=== PATIENT | female | born 1955 | race Caucasian/White ===

== ENCOUNTER 2020-12-22 05:56 | Day surgery (SDC) | payer MEDICARE, BC ==
[2020-12-22] MEDS ORDERED: Lactated Ringers 1,000 ML IV SCH (06:30)
[2020-12-22] MEDS ORDERED: Nozin Nasal Sanitizer NASBOTH ONE (06:30)
[2020-12-22] MEDS ORDERED: Povidone-Iodine 10% Soln 118.25 ML Bottle ONE (06:50)
[2020-12-22] MEDS ORDERED: Bupivacaine 0.5% 30 ML SDV ONE (06:50)
[2020-12-22] MEDS ORDERED: Lactated Ringers 500 ML IV SCH (07:00)
[2020-12-22] MEDS ORDERED: fentaNYL 100 MCG/2 ML SDV ONE (07:02)
[2020-12-22] MEDS ORDERED: Midazolam 1 MG/ML 2 ML SDV ONE (07:02)
[2020-12-22] MEDS ORDERED: Propofol 200 MG/20 ML SDV ONE (07:02)
[2020-12-22] MEDS ORDERED: ceFAZolin 1 GM in Premix Bag 1 BAG IV ONE (07:30)
[2020-12-22] MEDS ORDERED: Lactated Ringers 1,000 ML ONE (08:15)
[2020-12-22] MEDS ORDERED: Ondansetron 4 MG/2 ML SDV IVPUSH PRN (08:54)
[2020-12-22] MEDS ORDERED: Morphine 2 MG/ML SYRINGE IV PRN (08:54)
[2020-12-22] MEDS ORDERED: Acetaminophen/HYDROcodone 325-5 MG Tab PO PRN (08:54)
[2020-12-22] MEDS ORDERED: Acetaminophen 325 MG Tab PO PRN (08:54)
[2020-12-22] MEDS ORDERED: Sodium Chloride 0.9% 1,000 ML IV SCH (09:00)
[2020-12-22] MEDS ORDERED: PHENYTOIN 50 MG PO SCH (09:00)
[2020-12-22] MEDS: Acetaminophen/oxyCODONE 325-5 MG Tab PO PRN ×2 (12:22→20:38)
[2020-12-22] MEDS: Gabapentin 300 MG Cap PO SCH ×2 (12:24→20:32)
[2020-12-22] MEDS: Nozin Nasal Sanitizer NASBOTH SCH ×2 (12:24→20:25)
[2020-12-22] MEDS: atorvaSTATin 20 MG Tab PO SCH (12:24)
[2020-12-22] MEDS: Docusate Sodium 100 MG Cap PO SCH ×2 (12:24→20:31)
[2020-12-22] MEDS: Phenytoin 100 MG Cap.ER PO SCH ×2 (12:25→20:33)
[2020-12-22] MEDS: Topiramate 100 MG Tab PO SCH (12:25)
[2020-12-22] MEDS: Insulin Lispro 100 Unit/ML 3 ML KwikPen SUBCUT SCH ×2 (12:25→17:13)
[2020-12-22] MEDS: Insulin Glargine,Human Rec. Analog 100 Units/ML 3 ML Pen SUBCUT SCH ×2 (12:26→20:31)
[2020-12-22] MEDS: ceFAZolin 1 GM in Premix Bag 1 BAG IV SCH ×2 (15:05→21:51)
[2020-12-22] MEDS ORDERED: Warfarin 5 MG Tab PO ONE (16:00)
--- NOTE | 2020-12-22 16:12 | PCM.SN.2 ---
- Free Text/Narrative Note: Called [facility] for clarification on Coumadin Bridging Therapy, as there is no dose listed on the orders for the Lovenox. Per Gianna MALLORY at [facility], patient to resume 100 mg Lovenox subcutaneous daily starting on 12/23/20 through 12/26/20. Will have INR check on 12/26/20. Coumadin dosing as listed on the original bridging order form; patient has a copy of the form with bridging doses. A script for the Lovenox was called to Dionna Ansari in [facility] by [facility].
[2020-12-22] MEDS ORDERED: PHYTONADIONE 100 MCG PO SCH (17:00)
[2020-12-22] MEDS ORDERED: Ferrous Sulfate 325 MG Tab PO SCH (17:00)
[2020-12-22] MEDS ORDERED: Topiramate 100 MG Tab PO SCH (17:00)
[2020-12-22] MEDS ORDERED: Potassium Chloride 10 MEQ Cap.ER PO SCH (17:00)
[2020-12-22] MEDS: Pantoprazole 40 MG Tab.CR PO SCH (17:10)
[2020-12-22] MEDS ORDERED: Non-Formulary Medication 1 Each (Omeprazole [Omeprazole] 40 MG Cap.Cr) PO SCH (21:00)
[2020-12-23] MEDS: ceFAZolin 1 GM in Premix Bag 1 BAG IV SCH (05:15)
[2020-12-23] MEDS: Acetaminophen/oxyCODONE 325-5 MG Tab PO PRN ×2 (05:21→11:51)
[2020-12-23] MEDS: Pantoprazole 40 MG Tab.CR PO SCH (07:49)
[2020-12-23] MEDS: Insulin Lispro 100 Unit/ML 3 ML KwikPen SUBCUT SCH ×2 (07:50→12:27)
[2020-12-23] MEDS ORDERED: Losartan 50 MG Tab PO SCH (09:00)
[2020-12-23] MEDS ORDERED: Enoxaparin 100 MG/1 ML Syringe SUBCUT SCH (09:00)
[2020-12-23] MEDS ORDERED: Hydrochlorothiazide 25 MG Tab PO SCH (09:00)
[2020-12-23] MEDS: Nozin Nasal Sanitizer NASBOTH SCH (09:17)
[2020-12-23] MEDS: Docusate Sodium 100 MG Cap PO SCH (09:17)
[2020-12-23] MEDS: atorvaSTATin 20 MG Tab PO SCH (09:19)
[2020-12-23] MEDS: Phenytoin 100 MG Cap.ER PO SCH (09:20)
[2020-12-23] MEDS: Gabapentin 300 MG Cap PO SCH (09:20)
[2020-12-23] MEDS: Topiramate 100 MG Tab PO SCH (09:21)
[2020-12-23] MEDS: Insulin Glargine,Human Rec. Analog 100 Units/ML 3 ML Pen SUBCUT SCH (09:22)
--- NOTE | 2020-12-23 10:32 | PCM.DCSUM1 ---
Discharge Summary - Hospital Course Brief History: Patient is a mo 65 y/o female, history of left hip arthroplasty and tendon injuries. Had inch leg length discrepancy. Symptoms refractory to conservative management and injections, elected to undergo IT band resection. Surgery performed on 12/22/20, IT band adhesions released and prominent bursitis was resected. Patient tolerated surgery well with no complications. Diagnosis: Stroke: No Modified Stonewall Scale: No Symptoms at All Modified Melvin Scale Score: 0 - Discharge Data Discharge Date: 12/23/20 Discharge Disposition: Home, Self-Care 01 Condition: Good - Referral to Home Health Date of Face to Face Encounter: 12/23/20 Reason for Homebound Status: Motivated to go home, appropriate functional mobility with left lower extremity and fairly independent with ADLs. Primary Care Physician: Jorge Hanley MD - Patient Summary/Data Operative Procedure(s) Performed: left IT band adhesions release and trochanteric bursectomy Consults: Consultations 12/22/20 08:54 Consult to Case Management/Computer Terminal Operator [CONS] Routine Comment: Physician Instructions: Discharge placement post hip surgery Service(s) to be Consulted: Computer Terminal Operator Special Instructions: outpatient PT in [facility] PT Evaluation and Treatment [CONS] Routine Please Evaluate and Treat. PT Reason for Consult: Ambulation Discharge Disposition: Home w Home Health Special Instructions: s/p left IT band release + bursectomy This query below is only for informational purposes and is not editable. PT Evaluation and Treatment [CONS] Routine Please Evaluate and Treat. PT Reason for Consult: Post op Ortho Surgery Hip Pending Discharge: Yes, 2- -3 days Special Instructions: Schedule first outpatient P.T. appointment 3 - 5 days post discharge This query below is only for informational purposes and is not editable. 12/22/20 08:57 OT Evaluation and Treatment [CONS] Routine Please Evaluate and Treat. OT Reason for Consult: ADL's Special Instructions: Status post Hip Surgery, s/p left IT band release + bursectomy This query below is only for informational purposes and is not editable. Hospital Course: Mo 65 y/o female, status post left IT band adhesions release and trochanteric bursectomy, POD#1. Patient tolerated surgery well with no complications. Remains hemodynamically stable after surgery, denied fevers, chills, dyspnea, nor chest pain. POD#1 HgB declined to 11.6; has been asymptomatic with this. Has been hypotensive post-operatively, asymptomatic with this. Denied lightheadedness, vision changes, nor dizziness with transfers. Worked with physical therapy twice; ambulated 200+ ft with FWW and SBA. Demonstrated independence with getting into and out of bed, and transfers from chair to bed. Able to complete ADLs with minimal assistance. Pain was well controlled with oral Percocet. Denied numbness or tingling to LLE. Patient tolerated consistent carbohydrate diet well. Denied nausea or emesis. Exam: Left tibialis posterior, 2+. Sensation to left lower extremity intact. Left hip incision well approximated. No active drainage nor surrounding erythema. Mild warmth to touch of left hip. No ecchymosis or dermatologic concerns. Left calf is soft and supple. No significant pedal edema. - Patient Instructions Diet: Diabetic Diet Activity: Full Weight Bearing Driving: Do Not Drive Showering/Bathing: Shower in AM Wound/Incision Care: Keep Operative Site/Wound Site Clean and Dry Notify Provider of: Fever, Increased Pain, Swelling and Redness, Drainage Other/Special Instructions: -Pain control: Rx sent to [facility]. 5mg-325 mg Percocet, 1-2 tabs q6 hrs prn pain, #28. You may continue with stool softener while on this medication. -DVT/VTE prophylaxis: Continue with your bridging Coumadin schedule as provided by [place] [facility]. Continue with 100 mg Lovenox subcutaneous daily through 12/26/20. Rx at [facility] in [facility]. INR recheck scheduled for 12/26/20 with [place] [facility]. -Outpatient PT order has been sent to [place] [facility]. -You may remove dressing tomorrow and shower. Leave Steristrips over incision and let water run over these; they will fall off in about 1 week. Okay to shower, do not submerge incision in water (no baths, pools, Jacuzzi). -Monitor your BP at home for the next week. If BP <110/60, hold BP medications. If BP remains low or you become symptomatic (dizzy, lightheaded, vision changes) please follow up with your PCP. -Follow up with orthopedic clinic on 01/06/21 at 2:30 PM. Please call with any concerns or questions prior to scheduled apt. - Discharge Plan *PRESCRIPTION DRUG MONITORING PROGRAM REVIEWED*: Yes *COPY OF PRESCRIPTION DRUG MONITORING REPORT IN PATIENT HAMIDA: Not Applicable Prescriptions/Med Rec: Acetaminophen/oxyCODONE [Percocet 325-5 MG] 1 - 2 tab PO Q6HR PRN #28 tab PRN Reason: Pain Home Medications: Home Meds Aspirin [Low Dose Aspirin EC] 81 mg PO DAILY 11/10/20 [History] Ferrous Sulfate 325 mg PO QPM 11/10/20 [History] Gabapentin [Neurontin] 300 mg PO BID 11/10/20 [History] Insulin Aspart [NovoLOG] 24 units SQ TID 11/10/20 [History] Insulin Detemir [Levemir Flextouch] 45 units SQ BID 11/10/20 [History] Losartan/Hydrochlorothiazide [Losartan-HCTZ 100-25 MG] 1 tab PO DAILY 11/10/20 [History] Omeprazole 20 mg PO PCBREAKFAST 11/10/20 [History] Omeprazole 40 mg PO BEDTIME 11/10/20 [History] Phenytoin 250 mg PO QAM 11/10/20 [History] Phenytoin Sodium Extended 200 mg PO QPM 11/10/20 [History] Phytonadione [Vitamin K] 100 mcg PO QPM 11/10/20 [History] Potassium Chloride 10 meq PO QPM 11/10/20 [History] Topiramate 100 mg PO QAM 11/10/20 [History] Topiramate [Topiramate ER] 200 mg PO QPM 11/10/20 [History] Warfarin [Coumadin] 5 - 7.5 mg PO DAILY 11/10/20 [History] atorvaSTATin [Lipitor] 80 mg PO DAILY 11/10/20 [History] Multivitamin with Minerals [Multiple Vitamin] 1 tab PO DAILY 12/22/20 [History] oxyCODONE HCl/Acetaminophen [Endocet 5-325 Tablet] 1 tab PO Q4H PRN 12/22/20 [History] Acetaminophen/oxyCODONE [Percocet 325-5 MG] 1 - 2 tab PO Q6HR PRN #28 tab 12/23/20 [Rx] Oxygen Therapy Mode: Room Air Referrals: Regino Espinoza PA [Ordering Only Provider] - 01/06/21 2:30 pm (Please arrive 15 minutes early to register for your appointment. [place] at th ER desk.) - Discharge Summary/Plan Comment DC Time >30 min.: No Discharge Summary/Plan Comment: * Anticipate discharge to home today. * Outpatient PT orders faxed to [place] per patients request * Pain control: 5mg-325mg Percocet, 1-2 tabs q6 hrs prn pain, #28 * Encouraged to take stool softener while on opioid medication * Monitor your BP at home. If BP <110/60, hold BP medications. If BP remains low or you become symptomatic (dizzy, lightheaded, vision changes) please follow up with your PCP. * DVT/VTE prophylaxis: continue with Bridging Coumadin schedule provided by [place] [facility]. Called and confirmed Lovenox dosing with Gianna MALLORY at the clinic; 100 mg Lovenox subcutaneous daily through 12/26/20. Rx is at [facility]. Will have INR recheck on 12/26/20 * SSI warning signs reviewed with patient; she is to contact clinic with any concerns of incision * Custom orthotic shoe order; gave paper order to patient. She may try at [facility], if unable to make there, can fax order to [facility]. * Follow up with ortho clinic in 2 weeks. Encouraged to call clinic if concerns or questions arise. - General Info Date of Service: 12/23/20 Admission Dx/Problem (Free Text: left hip operation; s/p IT band adhesion release and trochanteric bursectomy Functional Status: Reports: Pain Controlled, Tolerating Diet, Ambulating (with FWW ), Incentive Spirometry - Review of Systems General: Denies: Fever, Weakness, Fatigue, Malaise, Chills Musculoskeletal: Reports: Leg Pain (left ), Joint Pain (left hip, pain well controlled with PO medications ) Skin: Reports: No Symptoms - Patient Data Vitals - Most Recent: Last Vital Signs Temp 95.7 F L 12/23/20 08:00 Pulse 83 12/23/20 08:00 Resp 16 12/23/20 08:00 BP 116/52 L 12/23/20 10:03 Pulse Ox 97 12/23/20 08:54 Weight - Most Recent: 160 lb 3.274 oz I&O - Last 24 hours: Intake & Output 12/22/20 12/23/20 12/23/20 22:59 06:59 14:59 Intake Total 1681 50 360 Output Total 1600 450 Balance 81 -400 360 Lab Results - Last 24 hrs: Laboratory Results - last 24 hr 12/23/20 Range/Units 05:45 WBC 11.4 H (4.5-11.0) K/uL RBC 3.87 (3.30-5.50) M/uL Hgb 11.6 L (12.0-15.0) g/dL Hct 36.8 (36.0-48.0) % MCV 95 (80-98) fL MCH 30 (27-31) pg MCHC 32 (32-36) % Plt Count 177 (150-400) K/uL Med Orders - Current: Current Medications Acetaminophen (Acetaminophen 325 Mg Tab) 650 mg PO Q4H PRN PRN Reason: Pain/Fever Hydrocodone Bitart/Acetaminophen (Acetaminophen/Hydrocodone 325-5 Mg Tab) 1 tab PO Q4H PRN PRN Reason: Pain (mild 1-3) Atorvastatin Calcium (Atorvastatin 20 Mg Tab) 80 mg PO DAILY [facility] Last Admin: 12/23/20 09:19 Dose: 80 mg Documented by: Bandage/Support Products (Nozin Nasal Farmer General) 1 applic NASBOTH BID [facility] Stop: 12/28/20 21:01 Last Admin: 12/23/20 09:17 Dose: 1 applic Documented by: Docusate Sodium (Docusate Sodium 100 Mg Cap) 100 mg PO BID [facility] Last Admin: 12/23/20 09:17 Dose: 100 mg Documented by: Enoxaparin Sodium (Enoxaparin 100 Mg/1 Ml Syringe) 100 mg SUBCUT DAILY [facility] Last Admin: 12/23/20 09:18 Dose: 100 mg Documented by: Ferrous Sulfate (Ferrous Sulfate 325 Mg Tab) 325 mg PO QPM [facility] Last Admin: 12/22/20 17:10 Dose: 325 mg Documented by: Gabapentin (Gabapentin 300 Mg Cap) 300 mg PO BID [facility] Last Admin: 12/23/20 09:20 Dose: 300 mg Documented by: Hydrochlorothiazide (Hydrochlorothiazide 25 Mg Tab) 25 mg PO DAILY [facility] Last Admin: 12/23/20 10:04 Dose: 25 mg Documented by: Insulin Glargine (Insulin Glargine,Human Rec. Analog 100 Units/Ml 3 Ml Pen) 45 units SUBCUT BID [facility] Last Admin: 12/23/20 09:22 Dose: 45 units Documented by: Insulin Human Lispro (Insulin Lispro 100 Unit/Ml 3 Ml Kwikpen) 24 unit SUBCUT TIDMEALS [facility] Last Admin: 12/23/20 07:50 Dose: 24 units Documented by: Losartan Potassium (Losartan 50 Mg Tab) 100 mg PO DAILY [facility] Last Admin: 12/23/20 10:03 Dose: 100 mg Documented by: Morphine Sulfate (Morphine 2 Mg/Ml Syringe) 1 mg IV Q1H PRN PRN Reason: Breakthrough Pain Phytonadione [ Vitamin K] 100 Mcg * *Ptom 0 mcg PO QPM [facility] Last Admin: 12/22/20 17:11 Dose: Not Given Documented by: Ondansetron HCl (Ondansetron 4 Mg/2 Ml Sdv) 4 mg IVPUSH Q6H PRN PRN Reason: Nausea/Vomiting Oxycodone/Acetaminophen (Acetaminophen/Oxycodone 325-5 Mg Tab) 1 - 2 tab PO Q4H PRN PRN Reason: Pain Last Admin: 12/23/20 05:21 Dose: 1 tab Documented by: Pantoprazole Sodium (Pantoprazole 40 Mg Tab.Cr) 40 mg PO BIDAC [facility] Last Admin: 12/23/20 07:49 Dose: 40 mg Documented by: Phenytoin Sodium (Phenytoin 100 Mg Cap.Er) 200 mg PO BID [facility] Last Admin: 12/23/20 09:20 Dose: 200 mg Documented by: Potassium Chloride (Potassium Chloride 10 Meq Cap.Er) 10 meq PO QPM [facility] Last Admin: 12/22/20 17:11 Dose: 10 meq Documented by: Topiramate (Topiramate 100 Mg Tab) 100 mg PO QAM [facility] Last Admin: 12/23/20 09:21 Dose: 100 mg Documented by: Topiramate (Topiramate 100 Mg Tab) 200 mg PO QPM [facility] Last Admin: 12/22/20 17:12 Dose: 200 mg Documented by: Warfarin Sodium (Warfarin 2.5 Mg Tab) 7.5 mg PO ONETIME ONE Stop: 12/23/20 13:01 Discontinued Medications Bandage/Support Products (Nozin Nasal Farmer [place]) 1 applic NASBOTH ONETIME ONE Stop: 12/22/20 06:31 Last Admin: 12/22/20 06:50 Dose: 1 applic Documented by: Bupivacaine HCl (Bupivacaine 0.5% 30 Ml Sdv) Confirm Administered Dose 30 ml .ROUTE .STK-MED ONE Stop: 12/22/20 06:51 Last Admin: 12/22/20 08:45 Dose: 20 ml Documented by: Fentanyl (Fentanyl 100 Mcg/2 Ml Sdv) Confirm Administered Dose 100 mcg .ROUTE .STK-MED ONE Stop: 12/22/20 07:03 Cefazolin Sodium/Dextrose 1 gm (/ Premix) 50 mls @ 100 mls/hr IV ONETIME ONE Stop: 12/22/20 07:59 Last Admin: 12/22/20 07:50 Dose: 100 mls/hr Documented by: Lactated Ringer's (Ringers, Lactated) 1,000 mls @ 75 mls/hr IV ASDIRECTED [facility] Lactated Ringer's (Ringers, Lactated) 500 mls @ 499.445 mls/hr IV ASDIRECTED [facility] Stop: 12/22/20 08:01 Last Admin: 12/22/20 07:18 Dose: 499.5 mls/hr Documented by: Lactated Ringer's (Ringers, Lactated) Confirm Administered Dose 1,000 mls @ as directed .ROUTE .STK-MED ONE Stop: 12/22/20 08:16 Sodium Chloride (Normal Saline) 1,000 mls @ 125 mls/hr IV ASDIRECTED [facility] Last Admin: 12/22/20 12:32 Dose: 125 mls/hr Documented by: Cefazolin Sodium/Dextrose 1 gm (/ Premix) 50 mls @ 100 mls/hr IV Q8H [facility] Stop: 12/23/20 06:29 Last Admin: 12/23/20 05:15 Dose: 100 mls/hr Documented by: Midazolam HCl (Midazolam 1 Mg/Ml 2 Ml Sdv) Confirm Administered Dose 2 mg .ROUTE .STK-MED ONE Stop: 12/22/20 07:03 Povidone Iodine (Povidone-Iodine 10% Soln 118.25 Ml Bottle) Confirm Administered Dose 1 ml .ROUTE .STK-MED ONE Stop: 12/22/20 06:51 Propofol (Propofol 200 Mg/20 Ml Sdv) Confirm Administered Dose 200 mg .ROUTE .STK-MED ONE Stop: 12/22/20 07:03 Warfarin Sodium (Warfarin 5 Mg Tab) 5 mg PO ONETIME ONE Stop: 12/22/20 16:01 Last Admin: 12/22/20 17:10 Dose: 5 mg Documented by: - Exam Quality Assessment: Reports: DVT Prophylaxis General: Reports: Alert, Oriented, Cooperative, No Acute Distress Extremities: No Pedal Edema, Normal Capillary Refill, Leg Pain (left ). No: Freddy's Sign Skin: Reports: Dry, Intact Wound/Incisions: Reports: Healing Well, Dressing Dry and Intact, No Drainage Psy/Mental Status: Reports: Alert, Normal Affect, Normal Mood
[2020-12-23] MEDS ORDERED: Warfarin 2.5 MG Tab PO ONE (13:00)
--- NOTE | 2020-12-24 16:23 | OR ---
DATE OF PROCEDURE: 12/22/2020 SURGEON: Salo Herrmann MD PREOPERATIVE DIAGNOSES: 1. Chronic trochanteric bursitis, left hip. 2. Iliotibial band syndrome, left hip. POSTOPERATIVE DIAGNOSES: 1. Chronic trochanteric bursitis, left hip. 2. Adhesions, iliotibial band, left hip. PROCEDURES: 1. Lysis of adhesions, left hip, between iliotibial band and abductor tendons and quadriceps muscle. 2. Release of iliotibial band with partial resection. 3. Excision of trochanteric bursa. LANDSCAPE FOREMAN: JERRICA Moreno ANESTHESIA: Spinal with sedation. INDICATIONS: Bibiana is a 65-year-old female who has had 2 previous procedures on her left hip including an abductor tendon repair and left total hip arthroplasty. She has had persistent and progressive pain with the left hip. She has been experiencing significant pain over the last few weeks, and pain was significantly relieved at least temporarily with injection over the trochanter. She is, therefore, taken to the operating room for planned IT band release and resection of the trochanteric bursa. Risks, benefits, and potential complications of the procedure were discussed including the possibility that this may not completely relieve her pain and that she will have persistent limb length discrepancy from her total hip. DESCRIPTION OF PROCEDURE: After adequate anesthesia was obtained, the patient was placed in a lateral decubitus position and secured with a beanbag hip positioner. The left hip and leg were prepped and draped in a sterile fashion. It should be noted that preoperatively she had minimal external rotation at the hip. No snapping was palpable with flexion and extension over the greater trochanter. After prep and drape, a portion of the previous incision was utilized directly over the greater trochanter. This was carried down through the subcutaneous tissues, and the IT band was identified. The IT band was divided and was found to be tightly adhered to the underlying structures including at her greater trochanter, the abductor tendons, and quadriceps fascia. Using a combination of scalpel and electrocautery, a plane was developed between the IT band and the underlying structures, initially working anteriorly up over the trochanter and a portion of the quadriceps. Lysis continued superiorly up over the greater trochanter and abductors. Lysis then continued posteriorly again between the abductors, greater trochanter, and vastus lateralis. A plane was developed for several centimeters anterior, posterior, inferior, and superior to the incision, freeing up the IT band. The division of the IT, which was initially longitudinal, was then extended for approximately 1 cm anterior and 1 cm posterior, and the 4 leaflets were then excised, resulting in a wilmar-shaped resection of the band over the trochanter. While clearing scar tissue off the greater trochanter, just slightly inferior to the most prominent portion, a trochanteric bursa was released under some pressure with a fluid-filled bursa present and a thickened bursal sac. This was excised using electrocautery. The site of the previous abductor tendon repair was inspected visually and by palpation with no evidence of recurrent tear, thinning, or other significant abnormality. The hip was taken through internal and external rotation. After release of the adhesions, external rotation was improved by approximately 20 degrees. No other abnormalities were identified. The hip was irrigated. A stay stitch was placed at the superior and inferior aspects of the resection in order to prevent propagation. This was done with #2 Ethibond in a figure-of- eight fashion. The skin was then closed with 2-0 Vicryl and a running 3-0 Monocryl. Steri- Strips were applied. Wound edges and subcutaneous tissues were infiltrated with 0.5% Marcaine. A sterile dressing was applied. The patient tolerated the procedure very well. There were no complications. She was taken from the operating room in stable condition. Salo Herrmann MD /[id number] [place]
== END 2020-12-23 13:53 | disposition home or self-care (01) ==
LOC: JP.SDS 05:56 → JP.MS 09:00 → JP.SDS 12-23 13:53
PROVIDERS: ATTEND Specialist
DX: M70.62 Trochanteric bursitis, left hip (principal); M76.32 Iliotibial band syndrome, left leg; E11.9 Type 2 diabetes mellitus without complications; I10 Essential (primary) hypertension; G47.33 Obstructive sleep apnea (adult) (pediatric); Z88.8 Allergy status to other drugs, medicaments and biological substances; Z79.82 Long term (current) use of aspirin; Z79.899 Other long term (current) drug therapy; Z79.4 Long term (current) use of insulin; Z79.01 Long term (current) use of anticoagulants; Z91.013 Allergy to seafood
CPT/HCPCS: 27305; 36415; 82947; 85027; 97110; 97116; 97162; 97165; 97530; 97535; A9270; J0690; J1650; J1815; J2250; J2704; J3010; J3490; J7030; J7120

== ENCOUNTER 2021-03-09 07:06 | Inpatient (IN) | payer MEDICARE, BC ==
[~2021-03-09 07:06] MED LIST: Povidone-Iodine 10% Soln 118.25 ML Bottle ONE; ceFAZolin 2 GM in Premix Bag 1 BAG IV ONE
[2021-03-09] MEDS ORDERED: Lactated Ringers 1,000 ML IV SCH (08:00)
[2021-03-09] MEDS ORDERED: Nozin Nasal Sanitizer NASBOTH ONE (08:00)
[2021-03-09] MEDS ORDERED: ceFAZolin 2 GM in Premix Bag 1 BAG IV ONE (08:30)
[2021-03-09] MEDS ORDERED: fentaNYL 100 MCG/2 ML SDV ONE ×2 (08:31→12:55)
[2021-03-09] MEDS ORDERED: Midazolam 1 MG/ML 2 ML SDV ONE ×3 (08:31→12:40)
[2021-03-09] MEDS ORDERED: Propofol 200 MG/20 ML SDV ONE ×2 (08:31→12:09)
[2021-03-09] MEDS ORDERED: Lactated Ringers 1,000 ML ONE ×2 (11:07→13:07)
[2021-03-09] MEDS ORDERED: ePHEDrine 50 MG/ML SDV ONE (11:56)
[2021-03-09] MEDS ORDERED: Morphine 2 MG/ML SYRINGE SUBCUT PRN (13:42)
[2021-03-09] MEDS ORDERED: Acetaminophen/HYDROcodone 325-5 MG Tab PO PRN (13:42)
[2021-03-09] MEDS ORDERED: Acetaminophen 325 MG Tab PO PRN (13:42)
[2021-03-09] MEDS ORDERED: Ondansetron 4 MG/2 ML SDV IVPUSH PRN (13:42)
[2021-03-09] MEDS ORDERED: ceFAZolin 1 GM in Sodium Chloride 0.9% 50 ML IV SCH (13:45)
[2021-03-09] MEDS ORDERED: Sodium Chloride 0.9% 1,000 ML IV SCH (13:45)
[2021-03-09] MEDS ORDERED: Warfarin 5 MG Tab PO ONE (13:51)
[2021-03-09] MEDS ORDERED: Morphine 2 MG/ML SYRINGE IV PRN ×2 (13:54→19:04)
[2021-03-09] MEDS ORDERED: Morphine 2 MG/ML SYRINGE IVPUSH ONE (13:58)
[2021-03-09] MEDS ORDERED: Non-Formulary Medication 1 Each (Insulin Aspart [Novolog] 100 UNIT/ML Pen) SQ SCH (14:00)
[2021-03-09] MEDS: Ketorolac 30 MG/ML SDV IVPUSH PRN ×2 (14:54→22:31)
[2021-03-09] MEDS: Acetaminophen/oxyCODONE 325-5 MG Tab PO PRN ×2 (16:15→20:22)
[2021-03-09] MEDS ORDERED: Diazepam 2 MG Tab PO PRN (16:17)
[2021-03-09] MEDS ORDERED: TOPIRAMATE 200 MG PO SCH (17:00)
[2021-03-09] MEDS ORDERED: Warfarin 2.5 MG Tab PO ONE (17:00)
[2021-03-09] MEDS: Pantoprazole 40 MG Tab.CR PO SCH (17:57)
[2021-03-09] MEDS: Potassium Chloride 10 MEQ Cap.ER PO SCH (17:58)
[2021-03-09] MEDS: Topiramate 100 MG Tab PO SCH (17:59)
[2021-03-09] MEDS: ceFAZolin 1 GM in Premix Bag 1 BAG IV SCH (18:04)
[2021-03-09] MEDS: Insulin Lispro 100 Unit/ML 3 ML KwikPen SUBCUT SCH (18:07)
[2021-03-09] MEDS: hydrOXYzine HCl 25 MG Tab PO PRN (19:13)
[2021-03-09] MEDS: Gabapentin 300 MG Cap PO SCH (20:21)
[2021-03-09] MEDS: Ferrous Sulfate 325 MG Tab PO SCH (20:21)
[2021-03-09] MEDS: Phenytoin 100 MG Cap.ER PO SCH (20:22)
[2021-03-09] MEDS ORDERED: Non-Formulary Medication 1 Each (Omeprazole [Omeprazole] 40 MG Cap.Cr) PO SCH (21:00)
[2021-03-09] MEDS ORDERED: Non-Formulary Medication 1 Each (Insulin Detemir [Levemir Flextouch] 100 UNIT/ML Insuln.Pe SQ SCH (21:00)
[2021-03-09] MEDS: Insulin Glargine,Human Rec. Analog 100 Units/ML 3 ML Pen SUBCUT SCH (22:03)
[2021-03-10] MEDS: Nozin Nasal Sanitizer NASBOTH SCH ×3 (02:49→20:17)
[2021-03-10] MEDS: ceFAZolin 1 GM in Premix Bag 1 BAG IV SCH ×2 (02:54→11:20)
[2021-03-10] MEDS: Acetaminophen/oxyCODONE 325-5 MG Tab PO PRN ×5 (03:00→21:41)
[2021-03-10] MEDS: Pantoprazole 40 MG Tab.CR PO SCH (07:42)
--- NOTE | 2021-03-10 08:34 | PCM.SURGPN ---
- General Info Date of Service: 03/10/21 Date of Surgery/Procedure: 03/09/21 POD#: 1 Post-Op Diagnosis: left hip revision Admission Diagnosis/Problem: Hip pain Functional Status: Reports: Pain Controlled, Tolerating Diet - Review of Systems General: Denies: Fever, Malaise, Chills HEENT: Denies: Visual Changes Pulmonary: Denies: Shortness of Breath Cardiovascular: Denies: Chest Pain Gastrointestinal: Denies: Nausea, Vomiting Musculoskeletal: Reports: Leg Pain (left ), Joint Pain (left hip ) Neurological: Reports: No Symptoms Psychiatric: Reports: Anxiety - Patient Data Vitals - Most Recent: Last Vital Signs Temp 97.2 F 03/10/21 07:24 Pulse 79 03/10/21 07:24 Resp 16 03/10/21 07:24 BP 119/48 L 03/10/21 07:24 Pulse Ox 100 03/10/21 07:24 Weight - Most Recent: 162 lb 3.105 oz I&O - Last 24 Hours: Intake & Output 03/09/21 03/10/21 03/10/21 22:59 06:59 14:59 Intake Total 489 1490 Output Total 180 400 Balance 309 1090 Lab Results Last 24 Hrs: Laboratory Results - last 24 hr 03/09/21 03/09/21 03/09/21 Range/Units 07:35 14:27 16:52 WBC (4.5-11.0) K/uL RBC (3.30-5.50) M/uL Hgb (12.0-15.0) g/dL Hct (36.0-48.0) % MCV (80-98) fL MCH (27-31) pg MCHC (32-36) % Plt Count (150-400) K/uL POC Glucose 154 H 165 H (74-106) mg/dL Blood Type O POSITIVE Gel Antibody Screen Negative 03/09/21 03/10/21 03/10/21 Range/Units 20:53 05:40 07:07 WBC 8.3 (4.5-11.0) K/uL RBC 3.12 L (3.30-5.50) M/uL Hgb 7.9 L (12.0-15.0) g/dL Hct 27.6 L (36.0-48.0) % MCV 89 (80-98) fL MCH 25 L (27-31) pg MCHC 29 L (32-36) % Plt Count 230 (150-400) K/uL POC Glucose 176 H 159 H (74-106) mg/dL Blood Type Gel Antibody Screen Med Orders - Current: Current Medications Acetaminophen (Acetaminophen 325 Mg Tab) 650 mg PO Q4H PRN PRN Reason: Pain/Fever Hydrocodone Bitart/Acetaminophen (Acetaminophen/Hydrocodone 325-5 Mg Tab) 1 tab PO Q4H PRN PRN Reason: Pain (mild 1-3) Atorvastatin Calcium (Atorvastatin 20 Mg Tab) 80 mg PO DAILY [facility] Bandage/Support Products (Nozin Nasal Farmworker) 1 applic NASBOTH BID [facility] Stop: 03/16/21 21:01 Last Admin: 03/10/21 02:49 Dose: Not Given Documented by: Diazepam (Diazepam 2 Mg Tab) 2 mg PO ONETIME PRN PRN Reason: Spasms Last Admin: 03/09/21 17:32 Dose: 2 mg Documented by: Docusate Sodium (Docusate Sodium 100 Mg Cap) 100 mg PO DAILY [facility] Enoxaparin Sodium (Enoxaparin 120 Mg/0.8 Ml Syringe) 120 mg SUBCUT DAILY [facility] Ferrous Sulfate (Ferrous Sulfate 325 Mg Tab) 325 mg PO BID [facility] Last Admin: 03/09/21 20:21 Dose: 325 mg Documented by: Gabapentin (Gabapentin 300 Mg Cap) 300 mg PO BID [facility] Last Admin: 03/09/21 20:21 Dose: 300 mg Documented by: Hydrochlorothiazide (Hydrochlorothiazide 25 Mg Tab) 25 mg PO DAILY [facility] Hydroxyzine HCl (Hydroxyzine Hcl 25 Mg Tab) 50 mg PO Q8H PRN PRN Reason: Breakthrough Pain Last Admin: 03/09/21 19:13 Dose: 50 mg Documented by: Sodium Chloride (Normal Saline) 1,000 mls @ 125 mls/hr IV ASDIRECTED [facility] Last Admin: 03/09/21 20:23 Dose: 125 mls/hr Documented by: Cefazolin Sodium/Dextrose 1 gm (/ Premix) 50 mls @ 100 mls/hr IV Q8H [facility] Stop: 03/10/21 10:59 Last Admin: 03/10/21 02:54 Dose: 100 mls/hr Documented by: Insulin Glargine (Insulin Glargine,Human Rec. Analog 100 Units/Ml 3 Ml Pen) 90 units SUBCUT BEDTIME [facility] Last Admin: 03/09/21 22:03 Dose: 90 units Documented by: Insulin Human Lispro (Insulin Lispro 100 Unit/Ml 3 Ml Kwikpen) 24 unit SUBCUT TIDMEALS [facility] Last Admin: 03/09/21 18:07 Dose: 24 units Documented by: Ketorolac Tromethamine (Ketorolac 30 Mg/Ml Sdv) 15 mg IVPUSH Q8H PRN PRN Reason: Breakthrough Pain Last Admin: 03/09/21 22:31 Dose: 15 mg Documented by: Losartan Potassium (Losartan 50 Mg Tab) 100 mg PO DAILY [facility] Morphine Sulfate (Morphine 2 Mg/Ml Syringe) 2 mg IV Q1H PRN PRN Reason: Breakthrough Pain Phytonadione [ Vitamin K] 100 Mcg Tab (Ptom) 0 mcg PO QPM [facility] Ondansetron HCl (Ondansetron 4 Mg/2 Ml Sdv) 4 mg IVPUSH Q6H PRN PRN Reason: Nausea/Vomiting Last Admin: 03/09/21 16:15 Dose: 4 mg Documented by: Oxycodone/Acetaminophen (Acetaminophen/Oxycodone 325-5 Mg Tab) 1 - 2 tab PO Q4H PRN PRN Reason: Pain Last Admin: 03/10/21 07:42 Dose: 2 tab Documented by: Phenytoin 50mg Chew (Tab (Ptom)) 1 each PO QAM [facility] Omeprazole 20mg Cap ((Ptom)) 0 each PO BEDTIME ENA Omeprazole 20mg Cap ((Ptom)) 0 each PO ACBREAKFAST [facility] Phenytoin Sodium (Phenytoin 100 Mg Cap.Er) 200 mg PO BEDTIME [facility] Last Admin: 03/09/21 20:22 Dose: 200 mg Documented by: Phenytoin Sodium (Phenytoin 100 Mg Cap.Er) 200 mg PO QAM [facility] Potassium Chloride (Potassium Chloride 10 Meq Cap.Er) 10 meq PO QPM [facility] Last Admin: 03/09/21 17:58 Dose: 10 meq Documented by: Topiramate (Topiramate 100 Mg Tab) 100 mg PO QAM [facility] Topiramate (Topiramate 100 Mg Tab) 200 mg PO QPM [facility] Last Admin: 03/09/21 17:59 Dose: 200 mg Documented by: Warfarin Sodium (Warfarin 5 Mg Tab) 10 mg PO ONETIME ONE Stop: 03/10/21 13:01 Warfarin Sodium (Warfarin 5 Mg Tab) 10 mg PO ONETIME ONE Stop: 03/11/21 13:01 Warfarin Sodium (Warfarin 2.5 Mg Tab) 7.5 mg PO ONETIME ONE Stop: 03/12/21 13:01 Discontinued Medications Bandage/Support Products (Nozin Nasal Farmworker) 1 applic NASBOTH ONETIME ONE Stop: 03/09/21 08:01 Last Admin: 03/09/21 08:33 Dose: 3 swab Documented by: Ephedrine Sulfate (Ephedrine 50 Mg/Ml Sdv) Confirm Administered Dose 50 mg .ROUTE .STK-MED ONE Stop: 03/09/21 11:57 Fentanyl (Fentanyl 100 Mcg/2 Ml Sdv) Confirm Administered Dose 100 mcg .ROUTE .STK-MED ONE Stop: 03/09/21 08:32 Fentanyl (Fentanyl 100 Mcg/2 Ml Sdv) Confirm Administered Dose 100 mcg .ROUTE .STK-MED ONE Stop: 03/09/21 12:56 Lactated Ringer's (Ringers, Lactated) 1,000 mls @ 75 mls/hr IV ASDIRECTED [facility] Last Admin: 03/09/21 08:32 Dose: 75 mls/hr Documented by: Cefazolin Sodium/Dextrose 2 gm (/ Premix) 50 mls @ 100 mls/hr IV ONETIME ONE Stop: 03/09/21 08:59 Last Admin: 03/09/21 10:30 Dose: 100 mls/hr Documented by: Lactated Ringer's (Ringers, Lactated) Confirm Administered Dose 1,000 mls @ as directed .ROUTE .STK-MED ONE Stop: 03/09/21 11:08 Lactated Ringer's (Ringers, Lactated) Confirm Administered Dose 1,000 mls @ as directed .ROUTE .STK-MED ONE Stop: 03/09/21 13:08 Midazolam HCl (Midazolam 1 Mg/Ml 2 Ml Sdv) Confirm Administered Dose 2 mg .ROUTE .STK-MED ONE Stop: 03/09/21 08:32 Midazolam HCl (Midazolam 1 Mg/Ml 2 Ml Sdv) Confirm Administered Dose 2 mg .ROUTE .STK-MED ONE Stop: 03/09/21 11:45 Midazolam HCl (Midazolam 1 Mg/Ml 2 Ml Sdv) Confirm Administered Dose 2 mg .ROUTE .STK-MED ONE Stop: 03/09/21 12:41 Morphine Sulfate (Morphine 2 Mg/Ml Syringe) 1 mg SUBCUT Q1H PRN PRN Reason: Breakthrough Pain Morphine Sulfate (Morphine 2 Mg/Ml Syringe) 1 mg IV Q1H PRN PRN Reason: Breakthrough Pain Last Admin: 03/09/21 18:21 Dose: 1 mg Documented by: Morphine Sulfate (Morphine 2 Mg/Ml Syringe) 2 mg IVPUSH ONETIME ONE Stop: 03/09/21 13:59 Last Admin: 03/09/21 14:03 Dose: 2 mg Documented by: Pantoprazole Sodium (Pantoprazole 40 Mg Tab.Cr) 40 mg PO BIDAC ENA Last Admin: 03/10/21 07:42 Dose: 40 mg Documented by: Povidone Iodine (Povidone-Iodine 10% Soln 118.25 Ml Bottle) Confirm Administered Dose 1 ml .ROUTE .STK-MED ONE Stop: 03/09/21 06:32 Propofol (Propofol 200 Mg/20 Ml Sdv) Confirm Administered Dose 200 mg .ROUTE .STK-MED ONE Stop: 03/09/21 08:32 Propofol (Propofol 200 Mg/20 Ml Sdv) Confirm Administered Dose 200 mg .ROUTE .STK-MED ONE Stop: 03/09/21 12:10 Warfarin Sodium (Warfarin 2.5 Mg Tab) 7.5 mg PO ONETIME ONE Stop: 03/09/21 17:01 Last Admin: 03/09/21 17:57 Dose: 7.5 mg Documented by: - Exam Wound/Incisions: Healing Well, Dressing Dry and Intact, No Drainage Quality Assessment: Urine Catheter, DVT Prophylaxis General: Alert, Oriented, Cooperative Extremities: Pedal Edema, Leg Pain (left ), Limited Range of Motion (due to postoperative pain, LLE ), Other (L tibial pulse, 2+ ). No: Freddy's Sign Skin: Dry, Intact Neurological: No New Focal Deficit Psy/Mental Status: Alert, Normal Mood, Anxious Sepsis Event Note - Evaluation Sepsis Screening Result: No Definite Risk - Focused Exam Vital Signs: Vital Signs Temp Pulse Resp BP Pulse Ox 03/10/21 07:24 97.2 F 79 16 119/48 L 100 03/10/21 02:55 99.2 F 93 16 119/52 L 97 03/09/21 22:45 97.7 F 83 16 119/52 L 96 - Problem List & Annotations (1) Status post hip surgery SNOMED Code(s): 116898372, 142873711 Code(s): Z98.890 - OTHER SPECIFIED POSTPROCEDURAL STATES Status: Acute Current Visit: No Annotation/Comment:: left hip revision, replacement of femoral prosthetic. DOS: 03/09/21 (2) Postoperative anemia SNOMED Code(s): 687822191, 337896052 Code(s): D64.9 - ANEMIA, UNSPECIFIED Status: Acute Current Visit: Yes - Problem List Review Problem List Initiated/Reviewed/Updated: Yes - My Orders Last 24 Hours: Active Orders 24 hr Category Date Time Status Patient Status [ADT] Routine ADT 03/09/21 13:42 Active Ambulate [RC] PER UNIT ROUTINE Care 03/09/21 13:42 Active Antiembolic Devices [RC] .Routine Care 03/09/21 08:00 Active Head of Bed Elevation [RC] ASDIRECTED Care 03/09/21 13:42 Active Neurovascular Check [RC] BID Care 03/09/21 13:42 Active Notify Provider Intake and Out [RC] ASDIRECTED Care 03/09/21 13:42 Active Notify Provider Vital Signs [RC] ASDIRECTED Care 03/09/21 13:42 Active Notify Provider Vital Signs [RC] ASDIRECTED Care 03/09/21 13:42 Active Oxygen Therapy [RC] PRN Care 03/09/21 13:42 Active POC Glucose [Blood Glucose Check, Bedside] [RC] Care 03/09/21 14:55 Active QIDACANDBED Pneumonia Education [RC] UPON Care 03/09/21 13:42 Active Pulse Oximetry [RC] INTERMITTENT Care 03/09/21 13:42 Active RT Incentive Spirometry [RC] ASDIRECTED Care 03/09/21 08:00 Active RT Incentive Spirometry [RC] Q1HWA Care 03/09/21 13:42 Active Up to Chair [RC] QID Care 03/09/21 13:42 Active VTE/DVT Education [RC] Click to Edit Care 03/09/21 13:43 Active Vital Signs [RC] PER UNIT ROUTINE Care 03/09/21 13:42 Active Wound Care [RC] Q12H Care 03/09/21 13:42 Active Consult to Case Management/Tv News Director [CONS] Cons 03/09/21 13:42 Active Routine OT Evaluation and Treatment [CONS] Routine Cons 03/09/21 13:46 Active PT Evaluation and Treatment [CONS] Routine Cons 03/09/21 13:42 Active PT Evaluation and Treatment [CONS] Routine Cons 03/09/21 13:42 Active Consistent Carbohydrate Diet [DIET] Diet 03/09/21 Lunch Active Pelvis 1V or 2V [CR] Routine Exams 03/09/21 14:02 Taken GLUCOSE POC LAB TO COLLECT JPM [POC] QIDACANDBED Lab 03/10/21 11:30 Ordered GLUCOSE POC LAB TO COLLECT JPM [POC] QIDACANDBED Lab 03/10/21 16:30 Ordered GLUCOSE POC LAB TO COLLECT JPM [POC] QIDACANDBED Lab 03/10/21 21:00 Ordered GLUCOSE POC LAB TO COLLECT JPM [POC] QIDACANDBED Lab 03/11/21 07:30 Ordered GLUCOSE POC LAB TO COLLECT JPM [POC] QIDACANDBED Lab 03/11/21 11:30 Ordered GLUCOSE POC LAB TO COLLECT JPM [POC] QIDACANDBED Lab 03/11/21 16:30 Ordered GLUCOSE POC LAB TO COLLECT JPM [POC] QIDACANDBED Lab 03/11/21 21:00 Ordered GLUCOSE POC LAB TO COLLECT JPM [POC] QIDACANDBED Lab 03/12/21 07:30 Ordered GLUCOSE POC LAB TO COLLECT JPM [POC] QIDACANDBED Lab 03/12/21 11:30 Ordered GLUCOSE POC LAB TO COLLECT JPM [POC] QIDACANDBED Lab 03/12/21 16:30 Ordered GLUCOSE POC LAB TO COLLECT JPM [POC] QIDACANDBED Lab 03/12/21 21:00 Ordered GLUCOSE POC LAB TO COLLECT JPM [POC] QIDACANDBED Lab 03/13/21 07:30 Ordered GLUCOSE POC LAB TO COLLECT JPM [POC] QIDACANDBED Lab 03/13/21 11:30 Ordered GLUCOSE POC LAB TO COLLECT JPM [POC] QIDACANDBED Lab 03/13/21 16:30 Ordered GLUCOSE POC LAB TO COLLECT JPM [POC] QIDACANDBED Lab 03/13/21 21:00 Ordered GLUCOSE POC LAB TO COLLECT JPM [POC] QIDACANDBED Lab 03/14/21 07:30 Ordered GLUCOSE POC LAB TO COLLECT JPM [POC] QIDACANDBED Lab 03/14/21 11:30 Ordered GLUCOSE POC LAB TO COLLECT JPM [POC] QIDACANDBED Lab 03/14/21 16:30 Ordered GLUCOSE POC LAB TO COLLECT JPM [POC] QIDACANDBED Lab 03/14/21 21:00 Ordered GLUCOSE POC LAB TO COLLECT JPM [POC] QIDACANDBED Lab 03/15/21 07:30 Ordered GLUCOSE POC LAB TO COLLECT JPM [POC] QIDACANDBED Lab 03/15/21 11:30 Ordered GLUCOSE POC LAB TO COLLECT JPM [POC] QIDACANDBED Lab 03/15/21 16:30 Ordered GLUCOSE POC LAB TO COLLECT JPM [POC] QIDACANDBED Lab 03/15/21 21:00 Ordered GLUCOSE POC LAB TO COLLECT JPM [POC] QIDACANDBED Lab 03/16/21 07:30 Ordered GLUCOSE POC LAB TO COLLECT JPM [POC] QIDACANDBED Lab 03/16/21 11:30 Ordered GLUCOSE POC LAB TO COLLECT JPM [POC] QIDACANDBED Lab 03/16/21 16:30 Ordered GLUCOSE POC LAB TO COLLECT JPM [POC] QIDACANDBED Lab 03/16/21 21:00 Ordered GLUCOSE POC LAB TO COLLECT JPM [POC] QIDACANDBED Lab 03/17/21 07:30 Ordered Acetaminophen [TylenoL] Med 03/09/21 13:42 Active 650 mg PO Q4H PRN Acetaminophen/HYDROcodone [[place] 325-5 MG] Med 03/09/21 13:42 Active 1 tab PO Q4H PRN Acetaminophen/oxyCODONE [Percocet 325-5 MG] Med 03/09/21 13:50 Active 1 - 2 tab PO Q4H PRN Docusate Sodium [Colace] Med 03/10/21 09:00 Active 100 mg PO DAILY Enoxaparin [Lovenox] Med 03/10/21 09:00 Active 120 mg SUBCUT DAILY Ferrous Sulfate Med 03/09/21 21:00 Active 325 mg PO BID Gabapentin [Neurontin] Med 03/09/21 21:00 Active 300 mg PO BID Insulin Glarg,Human.Rec.Analog [LantUS Solostar] Med 03/09/21 21:00 Active 90 units SUBCUT BEDTIME Insulin Lispro [HumaLOG] Med 03/09/21 17:00 Active 24 unit SUBCUT TIDMEALS Ketorolac [Toradol] Med 03/09/21 13:54 Active 15 mg IVPUSH Q8H PRN Losartan [Cozaar] Med 03/10/21 09:00 Active 100 mg PO DAILY Morphine Med 03/09/21 19:04 Active 2 mg IV Q1H PRN Nozin [ Nasal Farmworker] Med 03/09/21 21:00 Active 1 applic NASBOTH BID Ondansetron [Zofran] Med 03/09/21 13:42 Active 4 mg IVPUSH Q6H PRN Patient's Own Medication [Ptom] Med 03/11/21 07:30 Active 0 each PO ACBREAKFAST Patient's Own Medication [Ptom] Med 03/10/21 21:00 Active 0 each PO BEDTIME Patient's Own Medication [Ptom] Med 03/10/21 09:00 Active 1 each PO QAM Phenytoin Med 03/09/21 21:00 Active 200 mg PO BEDTIME Phenytoin Med 03/10/21 09:00 Active 200 mg PO QAM Phytonadione [Vitamin K] Med 03/10/21 17:00 Active 0 mcg PO QPM Potassium Chloride Med 03/09/21 17:00 Active 10 meq PO QPM Sodium Chloride 0.9% [Normal Saline] 1,000 ml Med 03/09/21 13:45 Active IV ASDIRECTED Topiramate [Topamax] Med 03/10/21 09:00 Active 100 mg PO QAM Topiramate [Topamax] Med 03/09/21 17:00 Active 200 mg PO QPM Warfarin [Coumadin] Med 03/10/21 13:00 Once 10 mg PO ONETIME ONE Warfarin [Coumadin] Med 03/11/21 13:00 Once 10 mg PO ONETIME ONE Warfarin [Coumadin] Med 03/12/21 13:00 Once 7.5 mg PO ONETIME ONE atorvaSTATin [Lipitor] Med 03/10/21 09:00 Active 80 mg PO DAILY ceFAZolin [Ancef 1 GM/50 ML] 1 gm Med 03/09/21 18:30 Active Premix Bag 1 bag IV Q8H diazePAM [Valium] Med 03/09/21 16:17 Active 2 mg PO ONETIME PRN hydrOXYzine HCL [Atarax] Med 03/09/21 19:00 Active 50 mg PO Q8H PRN hydroCHLOROthiazide Med 03/10/21 09:00 Active 25 mg PO DAILY Antiembolic Hose [OM.PC] Per Unit Routine Oth 03/09/21 13:42 Ordered DME for Inpatients [OM.PC] Routine Oth 03/09/21 13:42 Ordered DVT/VTE Prophylaxis Reflex [OM.PC] Routine Oth 03/09/21 13:42 Ordered Ice Therapy [OM.PC] Per Unit Routine Oth 03/09/21 13:42 Ordered Oral Care [OM.PC] Routine Oth 03/09/21 13:42 Ordered Sequential Compression Device [OM.PC] Routine Oth 03/09/21 13:42 Ordered Sequential Compression Device [OM.PC] Routine Oth 03/09/21 13:42 Ordered REINALDO Hose [Antiembolic Hose] [OM.PC] Routine Ot 03/09/21 08:00 Ordered Weight bearing status [OM.PC] Routine Oth 03/09/21 13:42 Ordered Resuscitation Status Routine Resus Stat 03/09/21 13:42 Ordered Medication Orders Acetaminophen (Acetaminophen 325 Mg Tab) 650 mg PO Q4H PRN PRN Reason: Pain/Fever Hydrocodone Bitart/Acetaminophen (Acetaminophen/Hydrocodone 325-5 Mg Tab) 1 tab PO Q4H PRN PRN Reason: Pain (mild 1-3) Atorvastatin Calcium (Atorvastatin 20 Mg Tab) 80 mg PO DAILY [facility] Bandage/Support Products (Nozin Nasal Farmworker) 1 applic NASBOTH BID ENA Stop: 03/16/21 21:01 Last Admin: 03/10/21 02:49 Dose: Not Given Documented by: HERBERT Diazepam (Diazepam 2 Mg Tab) 2 mg PO ONETIME PRN PRN Reason: Spasms Last Admin: 03/09/21 17:32 Dose: 2 mg Documented by: MARY Docusate Sodium (Docusate Sodium 100 Mg Cap) 100 mg PO DAILY [facility] Enoxaparin Sodium (Enoxaparin 120 Mg/0.8 Ml Syringe) 120 mg SUBCUT DAILY [facility] Ferrous Sulfate (Ferrous Sulfate 325 Mg Tab) 325 mg PO BID [facility] Last Admin: 03/09/21 20:21 Dose: 325 mg Documented by: HERBERT Gabapentin (Gabapentin 300 Mg Cap) 300 mg PO BID [facility] Last Admin: 03/09/21 20:21 Dose: 300 mg Documented by: HERBERT Hydrochlorothiazide (Hydrochlorothiazide 25 Mg Tab) 25 mg PO DAILY [facility] Hydroxyzine HCl (Hydroxyzine Hcl 25 Mg Tab) 50 mg PO Q8H PRN PRN Reason: Breakthrough Pain Last Admin: 03/09/21 19:13 Dose: 50 mg Documented by: HERBERT Sodium Chloride (Normal Saline) 1,000 mls @ 125 mls/hr IV ASDIRECTED [facility] Last Admin: 03/09/21 20:23 Dose: 125 mls/hr Documented by: HERBERT Cefazolin Sodium/Dextrose 1 gm (/ Premix) 50 mls @ 100 mls/hr IV Q8H [facility] Stop: 03/10/21 10:59 Last Admin: 03/10/21 02:54 Dose: 100 mls/hr Documented by: Infusion: 03/09/21 18:34 Dose: 100 mls/hr Documented by: Admin: 03/09/21 18:04 Dose: 100 mls/hr Documented by: VASILIY Insulin Glargine (Insulin Glargine,Human Rec. Analog 100 Units/Ml 3 Ml Pen) 90 units SUBCUT BEDTIME [facility] Last Admin: 03/09/21 22:03 Dose: 90 units Documented by: HERBERT Cosigned by: GABRIEL Insulin Human Lispro (Insulin Lispro 100 Unit/Ml 3 Ml Kwikpen) 24 unit SUBCUT TIDMEALS [facility] Last Admin: 03/09/21 18:07 Dose: 24 units Documented by: VASILIY Cosigned by: CLARK Ketorolac Tromethamine (Ketorolac 30 Mg/Ml Sdv) 15 mg IVPUSH Q8H PRN PRN Reason: Breakthrough Pain Last Admin: 03/09/21 22:31 Dose: 15 mg Documented by: Admin: 03/09/21 14:54 Dose: 15 mg Documented by: VASILIY Losartan Potassium (Losartan 50 Mg Tab) 100 mg PO DAILY [facility] Morphine Sulfate (Morphine 2 Mg/Ml Syringe) 2 mg IV Q1H PRN PRN Reason: Breakthrough Pain Phytonadione [ Vitamin K] 100 Mcg Tab (Ptom) 0 mcg PO QPM [facility] Ondansetron HCl (Ondansetron 4 Mg/2 Ml Sdv) 4 mg IVPUSH Q6H PRN PRN Reason: Nausea/Vomiting Last Admin: 03/09/21 16:15 Dose: 4 mg Documented by: VASILIY Oxycodone/Acetaminophen (Acetaminophen/Oxycodone 325-5 Mg Tab) 1 - 2 tab PO Q4H PRN PRN Reason: Pain Last Admin: 03/10/21 07:42 Dose: 2 tab Documented by: Admin: 03/10/21 03:00 Dose: 2 tab Documented by: Admin: 03/09/21 20:22 Dose: 2 tab Documented by: Admin: 03/09/21 16:15 Dose: 2 tab Documented by: VASILIY Phenytoin 50mg Chew (Tab (Ptom)) 1 each PO QAM ENA Omeprazole 20mg Cap ((Ptom)) 0 each PO BEDTIME ENA Omeprazole 20mg Cap ((Ptom)) 0 each PO ACBREAKFAST [facility] Phenytoin Sodium (Phenytoin 100 Mg Cap.Er) 200 mg PO BEDTIME [facility] Last Admin: 03/09/21 20:22 Dose: 200 mg Documented by: HERBERT Phenytoin Sodium (Phenytoin 100 Mg Cap.Er) 200 mg PO QAM [facility] Potassium Chloride (Potassium Chloride 10 Meq Cap.Er) 10 meq PO QPM [facility] Last Admin: 03/09/21 17:58 Dose: 10 meq Documented by: VASILIY Topiramate (Topiramate 100 Mg Tab) 100 mg PO QAM [facility] Topiramate (Topiramate 100 Mg Tab) 200 mg PO QPM [facility] Last Admin: 03/09/21 17:59 Dose: 200 mg Documented by: VASILIY Warfarin Sodium (Warfarin 5 Mg Tab) 10 mg PO ONETIME ONE Stop: 03/10/21 13:01 Warfarin Sodium (Warfarin 5 Mg Tab) 10 mg PO ONETIME ONE Stop: 03/11/21 13:01 Warfarin Sodium (Warfarin 2.5 Mg Tab) 7.5 mg PO ONETIME ONE Stop: 03/12/21 13:01 - Assessment Assessment (Free Text/Narrative):: Patient is a pleasant 65-year-old female, status post left hip revision, postop day #1. Patient tolerated surgery well with no complications. Patient has remained hemodynamically stable since surgery. Has had some hypotensive readings, fairly asymptomatic with this. Postop day #1 hemoglobin declined to 7.9. Patient has not been ambulatory yet, at this time denied dizziness, vision changes, dyspnea. Patient had a difficult time obtaining adequate pain control yesterday following surgery. Reports pain is better controlled this morning with current regimen and sitting in the chair. Does endorse ache at rest along groin and lateral hip, but more tolerable than the throbbing pain and muscle spasms she experienced yesterday. Patient denied calf pain nor paresthesias this morning. Wright catheter remains in place at this time due to limited ambulation abilities. Patient participated in PT yesterday following surgery, treatment was focused on muscle spasms and manual massage techniques. Ambulatory abilities remain limited at this time due to postoperative pain. Patient tolerating consistent carbohydrate diet well. Denied nausea or emesis. POC glucose readings have been within acceptable limits. Patient requires inpatient status at this time for medical monitoring of postoperative anemia, in addition to further physical therapy services to progress functional mobility of left lower extremity. Exam: L hip dressing dry and intact. Tibial pulse, 2+. Sensation to LLE intact. Mild pedal edema of LLE. Plan: * Patient to participate in physical and occupational therapy sessions daily while in the hospital to progress functional mobility of left lower extremity. * Postoperative anemia: Stable at this time. Continue to monitor for symptoms; may need 1 unit pRBCs if becomes symptomatic. * Postoperative vitals: Continue to monitor every 4 hours. * Pain regimen: Continue on current regimen. * Continue with maintenance fluids. * DVT/VTE prophylaxis: Orders entered as prescribed by Coumadin clinic. brought in patient's home vitamin K this morning and will be resumed today. * Remove Wright catheter once ambulation abilities improve. Patient has history of recurrent UTIs; will monitor for dysuria/urgency. * Anticipate dressing change tomorrow by orthopedic provider. * Anticipate discharge to home when medically stable and ambulation abilities improve. Patient would like to have physical therapy at [facility]. Order provided for train planner to make arrangements.
[2021-03-10] MEDS: Docusate Sodium 100 MG Cap PO SCH (08:59)
[2021-03-10] MEDS: Ferrous Sulfate 325 MG Tab PO SCH ×2 (09:00→20:17)
[2021-03-10] MEDS ORDERED: Non-Formulary Medication 1 Each (Omeprazole [Omeprazole] 20 MG Cap.Cr) PO SCH (09:00)
[2021-03-10] MEDS ORDERED: Phenytoin 25 MG/1 ML Susp ML 237 ML Bottle PO SCH (09:00)
[2021-03-10] MEDS ORDERED: Non-Formulary Medication 1 Each (Atorvastatin [Lipitor] 80 MG Tablet) PO SCH (09:00)
[2021-03-10] MEDS ORDERED: PHENYTOIN 50 MG PO SCH (09:00)
[2021-03-10] MEDS: Losartan 50 MG Tab PO SCH (09:01)
[2021-03-10] MEDS: Hydrochlorothiazide 25 MG Tab PO SCH (09:01)
[2021-03-10] MEDS: Enoxaparin 120 MG/0.8 ML Syringe SUBCUT SCH (09:02)
[2021-03-10] MEDS: Gabapentin 300 MG Cap PO SCH ×2 (09:02→20:17)
[2021-03-10] MEDS: PHENYTOIN 50 MG PO SCH (09:04)
[2021-03-10] MEDS: Topiramate 100 MG Tab PO SCH ×2 (09:05→17:04)
[2021-03-10] MEDS: Phenytoin 100 MG Cap.ER PO SCH ×2 (09:05→20:17)
[2021-03-10] MEDS: atorvaSTATin 20 MG Tab PO SCH (09:06)
[2021-03-10] MEDS: Insulin Lispro 100 Unit/ML 3 ML KwikPen SUBCUT SCH ×3 (09:07→17:02)
[2021-03-10] MEDS ORDERED: Warfarin 5 MG Tab PO ONE (13:00)
[2021-03-10] MEDS: PHYTONADIONE 100 MCG PO SCH (17:01)
[2021-03-10] MEDS: Potassium Chloride 10 MEQ Cap.ER PO SCH (17:04)
[2021-03-10] MEDS: OMEPRAZOLE 20MG CAP (PTOM) PO SCH (20:17)
[2021-03-10] MEDS: Insulin Glargine,Human Rec. Analog 100 Units/ML 3 ML Pen SUBCUT SCH (21:42)
[2021-03-11] MEDS: Acetaminophen/oxyCODONE 325-5 MG Tab PO PRN ×3 (01:55→10:02)
[2021-03-11] MEDS: OMEPRAZOLE 20MG CAP (PTOM) PO SCH ×2 (07:13→20:27)
[2021-03-11] MEDS: Insulin Lispro 100 Unit/ML 3 ML KwikPen SUBCUT SCH ×3 (07:17→17:30)
[2021-03-11] MEDS: Nozin Nasal Sanitizer NASBOTH SCH ×2 (09:06→20:24)
[2021-03-11] MEDS: Docusate Sodium 100 MG Cap PO SCH (09:07)
[2021-03-11] MEDS: Losartan 50 MG Tab PO SCH (09:10)
[2021-03-11] MEDS: Hydrochlorothiazide 25 MG Tab PO SCH (09:10)
[2021-03-11] MEDS: Ferrous Sulfate 325 MG Tab PO SCH ×2 (09:13→20:25)
[2021-03-11] MEDS: atorvaSTATin 20 MG Tab PO SCH (09:14)
[2021-03-11] MEDS: Gabapentin 300 MG Cap PO SCH ×2 (09:17→20:25)
[2021-03-11] MEDS: Phenytoin 100 MG Cap.ER PO SCH ×2 (09:18→20:27)
[2021-03-11] MEDS: PHENYTOIN 50 MG PO SCH (09:19)
[2021-03-11] MEDS: Topiramate 100 MG Tab PO SCH ×2 (09:20→17:26)
[2021-03-11] MEDS: Enoxaparin 120 MG/0.8 ML Syringe SUBCUT SCH (09:27)
--- NOTE | 2021-03-11 10:15 | PCM.SURGPN ---
- General Info Date of Service: 03/11/21 Date of Surgery/Procedure: 03/09/21 POD#: 2 Post-Op Diagnosis: limb length discrepency, left hip revision Admission Diagnosis/Problem: Hip pain Functional Status: Reports: Pain Controlled, Tolerating Diet, Ambulating (with FWW ), Urinating - Review of Systems General: Denies: Fever, Fatigue, Chills Pulmonary: Denies: Shortness of Breath Cardiovascular: Denies: Chest Pain, Palpitations Gastrointestinal: Denies: Nausea, Vomiting Genitourinary: Denies: Dysuria, Urgency Musculoskeletal: Reports: Leg Pain (left ), Joint Pain (left hip ) Skin: Reports: Bruising Neurological: Reports: No Symptoms Psychiatric: Reports: No Symptoms - Patient Data Vitals - Most Recent: Last Vital Signs Temp 99 F 03/11/21 07:33 Pulse 86 03/11/21 07:33 Resp 14 03/11/21 07:33 BP 126/49 L 03/11/21 09:10 Pulse Ox 96 03/11/21 07:33 Weight - Most Recent: 162 lb 3.105 oz I&O - Last 24 Hours: Intake & Output 03/10/21 03/11/21 03/11/21 22:59 06:59 14:59 Intake Total 355 476 Output Total 1350 900 Balance -1350 -545 476 Lab Results Last 24 Hrs: Laboratory Results - last 24 hr 03/10/21 03/10/21 03/10/21 Range/Units 11:15 16:17 20:44 POC Glucose 214 H 143 H 160 H (74-106) mg/dL 03/11/21 Range/Units 07:48 POC Glucose 183 H (74-106) mg/dL Med Orders - Current: Current Medications Acetaminophen (Acetaminophen 325 Mg Tab) 650 mg PO Q4H PRN PRN Reason: Pain/Fever Hydrocodone Bitart/Acetaminophen (Acetaminophen/Hydrocodone 325-5 Mg Tab) 1 tab PO Q4H PRN PRN Reason: Pain (mild 1-3) Atorvastatin Calcium (Atorvastatin 20 Mg Tab) 80 mg PO DAILY [facility] Last Admin: 03/11/21 09:14 Dose: 80 mg Documented by: Bandage/Support Products (Nozin Nasal Money Room Teller) 1 applic NASBOTH BID [facility] Stop: 03/16/21 21:01 Last Admin: 03/11/21 09:06 Dose: 1 applic Documented by: Diazepam (Diazepam 2 Mg Tab) 2 mg PO ONETIME PRN PRN Reason: Spasms Last Admin: 03/09/21 17:32 Dose: 2 mg Documented by: Docusate Sodium (Docusate Sodium 100 Mg Cap) 100 mg PO DAILY [facility] Last Admin: 03/11/21 09:07 Dose: 100 mg Documented by: Enoxaparin Sodium (Enoxaparin 120 Mg/0.8 Ml Syringe) 120 mg SUBCUT DAILY [facility] Last Admin: 03/11/21 09:27 Dose: 120 mg Documented by: Ferrous Sulfate (Ferrous Sulfate 325 Mg Tab) 325 mg PO BID [facility] Last Admin: 03/11/21 09:13 Dose: 325 mg Documented by: Gabapentin (Gabapentin 300 Mg Cap) 300 mg PO BID [facility] Last Admin: 03/11/21 09:17 Dose: 300 mg Documented by: Hydrochlorothiazide (Hydrochlorothiazide 25 Mg Tab) 25 mg PO DAILY [facility] Last Admin: 03/11/21 09:10 Dose: 25 mg Documented by: Hydroxyzine HCl (Hydroxyzine Hcl 25 Mg Tab) 50 mg PO Q8H PRN PRN Reason: Breakthrough Pain Last Admin: 03/09/21 19:13 Dose: 50 mg Documented by: Sodium Chloride (Normal Saline) 1,000 mls @ 125 mls/hr IV ASDIRECTED [facility] Last Admin: 03/09/21 20:23 Dose: 125 mls/hr Documented by: Insulin Glargine (Insulin Glargine,Human Rec. Analog 100 Units/Ml 3 Ml Pen) 90 units SUBCUT BEDTIME [facility] Last Admin: 03/10/21 21:42 Dose: 90 units Documented by: Insulin Human Lispro (Insulin Lispro 100 Unit/Ml 3 Ml Kwikpen) 24 unit SUBCUT TIDMEALS [facility] Last Admin: 03/11/21 07:17 Dose: 24 units Documented by: Ketorolac Tromethamine (Ketorolac 30 Mg/Ml Sdv) 15 mg IVPUSH Q8H PRN PRN Reason: Breakthrough Pain Stop: 03/14/21 13:55 Last Admin: 03/09/21 22:31 Dose: 15 mg Documented by: Losartan Potassium (Losartan 50 Mg Tab) 100 mg PO DAILY [facility] Last Admin: 03/11/21 09:10 Dose: 100 mg Documented by: Morphine Sulfate (Morphine 2 Mg/Ml Syringe) 2 mg IV Q1H PRN PRN Reason: Breakthrough Pain Phytonadione [ Vitamin K] 100 Mcg Tab (Ptom) 0 mcg PO QPM [facility] Last Admin: 03/10/21 17:01 Dose: 100 mcg Documented by: Ondansetron HCl (Ondansetron 4 Mg/2 Ml Sdv) 4 mg IVPUSH Q6H PRN PRN Reason: Nausea/Vomiting Last Admin: 03/09/21 16:15 Dose: 4 mg Documented by: Oxycodone/Acetaminophen (Acetaminophen/Oxycodone 325-5 Mg Tab) 1 - 2 tab PO Q4H PRN PRN Reason: Pain Last Admin: 03/11/21 06:03 Dose: 2 tab Documented by: Phenytoin 50mg Chew (Tab (Ptom)) 1 each PO QAM [facility] Last Admin: 03/11/21 09:19 Dose: 1 each Documented by: Omeprazole 20mg Cap ((Ptom)) 0 each PO BEDTIME [facility] Last Admin: 03/10/21 20:17 Dose: 1 each Documented by: Omeprazole 20mg Cap ((Ptom)) 0 each PO ACBREAKFAST [facility] Last Admin: 03/11/21 07:13 Dose: 1 each Documented by: Phenytoin Sodium (Phenytoin 100 Mg Cap.Er) 200 mg PO BEDTIME [facility] Last Admin: 03/10/21 20:17 Dose: 200 mg Documented by: Phenytoin Sodium (Phenytoin 100 Mg Cap.Er) 200 mg PO QAM [facility] Last Admin: 03/11/21 09:18 Dose: 200 mg Documented by: Potassium Chloride (Potassium Chloride 10 Meq Cap.Er) 10 meq PO QPM [facility] Last Admin: 03/10/21 17:04 Dose: 10 meq Documented by: Topiramate (Topiramate 100 Mg Tab) 100 mg PO QAM [facility] Last Admin: 03/11/21 09:20 Dose: 100 mg Documented by: Topiramate (Topiramate 100 Mg Tab) 200 mg PO QPM [facility] Last Admin: 03/10/21 17:04 Dose: 200 mg Documented by: Warfarin Sodium (Warfarin 5 Mg Tab) 10 mg PO ONETIME ONE Stop: 03/11/21 13:01 Warfarin Sodium (Warfarin 2.5 Mg Tab) 7.5 mg PO ONETIME ONE Stop: 03/12/21 13:01 Discontinued Medications Bandage/Support Products (Nozin Nasal Money Room Teller) 1 applic NASBOTH ONETIME ONE Stop: 03/09/21 08:01 Last Admin: 03/09/21 08:33 Dose: 3 swab Documented by: Ephedrine Sulfate (Ephedrine 50 Mg/Ml Sdv) Confirm Administered Dose 50 mg .ROUTE .STK-MED ONE Stop: 03/09/21 11:57 Fentanyl (Fentanyl 100 Mcg/2 Ml Sdv) Confirm Administered Dose 100 mcg .ROUTE .STK-MED ONE Stop: 03/09/21 08:32 Fentanyl (Fentanyl 100 Mcg/2 Ml Sdv) Confirm Administered Dose 100 mcg .ROUTE .STK-MED ONE Stop: 03/09/21 12:56 Lactated Ringer's (Ringers, Lactated) 1,000 mls @ 75 mls/hr IV ASDIRECTED [facility] Last Admin: 03/09/21 08:32 Dose: 75 mls/hr Documented by: Cefazolin Sodium/Dextrose 2 gm (/ Premix) 50 mls @ 100 mls/hr IV ONETIME ONE Stop: 03/09/21 08:59 Last Admin: 03/09/21 10:30 Dose: 100 mls/hr Documented by: Lactated Ringer's (Ringers, Lactated) Confirm Administered Dose 1,000 mls @ as directed .ROUTE .STK-MED ONE Stop: 03/09/21 11:08 Lactated Ringer's (Ringers, Lactated) Confirm Administered Dose 1,000 mls @ as directed .ROUTE .STK-MED ONE Stop: 03/09/21 13:08 Cefazolin Sodium/Dextrose 1 gm (/ Premix) 50 mls @ 100 mls/hr IV Q8H [facility] Stop: 03/10/21 10:59 Last Infusion: 03/10/21 11:33 Dose: 100 mls/hr Documented by: Midazolam HCl (Midazolam 1 Mg/Ml 2 Ml Sdv) Confirm Administered Dose 2 mg .ROUTE .STK-MED ONE Stop: 03/09/21 08:32 Midazolam HCl (Midazolam 1 Mg/Ml 2 Ml Sdv) Confirm Administered Dose 2 mg .ROUTE .STK-MED ONE Stop: 03/09/21 11:45 Midazolam HCl (Midazolam 1 Mg/Ml 2 Ml Sdv) Confirm Administered Dose 2 mg .ROUTE .STK-MED ONE Stop: 03/09/21 12:41 Morphine Sulfate (Morphine 2 Mg/Ml Syringe) 1 mg SUBCUT Q1H PRN PRN Reason: Breakthrough Pain Morphine Sulfate (Morphine 2 Mg/Ml Syringe) 1 mg IV Q1H PRN PRN Reason: Breakthrough Pain Last Admin: 03/09/21 18:21 Dose: 1 mg Documented by: Morphine Sulfate (Morphine 2 Mg/Ml Syringe) 2 mg IVPUSH ONETIME ONE Stop: 03/09/21 13:59 Last Admin: 03/09/21 14:03 Dose: 2 mg Documented by: Pantoprazole Sodium (Pantoprazole 40 Mg Tab.Cr) 40 mg PO BIDAC [facility] Last Admin: 03/10/21 07:42 Dose: 40 mg Documented by: Povidone Iodine (Povidone-Iodine 10% Soln 118.25 Ml Bottle) Confirm Administered Dose 1 ml .ROUTE .STK-MED ONE Stop: 03/09/21 06:32 Propofol (Propofol 200 Mg/20 Ml Sdv) Confirm Administered Dose 200 mg .ROUTE .STK-MED ONE Stop: 03/09/21 08:32 Propofol (Propofol 200 Mg/20 Ml Sdv) Confirm Administered Dose 200 mg .ROUTE .STK-MED ONE Stop: 03/09/21 12:10 Warfarin Sodium (Warfarin 5 Mg Tab) 10 mg PO ONETIME ONE Stop: 03/10/21 13:01 Last Admin: 03/10/21 12:18 Dose: 10 mg Documented by: Warfarin Sodium (Warfarin 2.5 Mg Tab) 7.5 mg PO ONETIME ONE Stop: 03/09/21 17:01 Last Admin: 03/09/21 17:57 Dose: 7.5 mg Documented by: - Exam Wound/Incisions: Healing Well, Dressing Dry and Intact, No Drainage Quality Assessment: DVT Prophylaxis General: Alert, Oriented, Cooperative, No Acute Distress Extremities: Pedal Edema, Leg Pain (left ), Limited Range of Motion (due to postoperative pain). No: Freddy's Sign Skin: Dry, Intact, Ecchymosis Neurological: No New Focal Deficit Psy/Mental Status: Alert, Normal Affect, Normal Mood Sepsis Event Note - Evaluation Sepsis Screening Result: No Definite Risk - Focused Exam Vital Signs: Vital Signs Temp Pulse Resp BP BP Pulse Ox 03/11/21 09:10 126/49 L 03/11/21 07:33 99 F 86 14 126/49 L 96 03/11/21 01:56 99.2 F 85 18 138/52 L 94 L 03/10/21 23:29 99.0 F 84 16 124/46 L 95 - Problem List & Annotations (1) Status post hip surgery SNOMED Code(s): 483650953, 983956084 Code(s): Z98.890 - OTHER SPECIFIED POSTPROCEDURAL STATES Status: Acute Current Visit: No Annotation/Comment:: left hip revision, replacement of femoral prosthetic. DOS: 03/09/21 (2) Postoperative anemia SNOMED Code(s): 009986138, 206948844 Code(s): D64.9 - ANEMIA, UNSPECIFIED Status: Acute Current Visit: Yes - Problem List Review Problem List Initiated/Reviewed/Updated: Yes - My Orders Last 24 Hours: Active Orders 24 hr Category Date Time Status Bladder Scan [RC] ASDIRECTED Care 03/10/21 16:30 Active GLUCOSE POC LAB TO COLLECT JPM [POC] QIDACANDBED Lab 03/11/21 11:30 Ordered GLUCOSE POC LAB TO COLLECT JPM [POC] QIDACANDBED Lab 03/11/21 16:30 Ordered GLUCOSE POC LAB TO COLLECT JPM [POC] QIDACANDBED Lab 03/11/21 21:00 Ordered GLUCOSE POC LAB TO COLLECT JPM [POC] QIDACANDBED Lab 03/12/21 07:30 Ordered GLUCOSE POC LAB TO COLLECT JPM [POC] QIDACANDBED Lab 03/12/21 11:30 Ordered GLUCOSE POC LAB TO COLLECT JPM [POC] QIDACANDBED Lab 03/12/21 16:30 Ordered GLUCOSE POC LAB TO COLLECT JPM [POC] QIDACANDBED Lab 03/12/21 21:00 Ordered GLUCOSE POC LAB TO COLLECT JPM [POC] QIDACANDBED Lab 03/13/21 07:30 Ordered GLUCOSE POC LAB TO COLLECT JPM [POC] QIDACANDBED Lab 03/13/21 11:30 Ordered GLUCOSE POC LAB TO COLLECT JPM [POC] QIDACANDBED Lab 03/13/21 16:30 Ordered GLUCOSE POC LAB TO COLLECT JPM [POC] QIDACANDBED Lab 03/13/21 21:00 Ordered GLUCOSE POC LAB TO COLLECT JPM [POC] QIDACANDBED Lab 03/14/21 07:30 Ordered GLUCOSE POC LAB TO COLLECT JPM [POC] QIDACANDBED Lab 03/14/21 11:30 Ordered GLUCOSE POC LAB TO COLLECT JPM [POC] QIDACANDBED Lab 03/14/21 16:30 Ordered GLUCOSE POC LAB TO COLLECT JPM [POC] QIDACANDBED Lab 03/14/21 21:00 Ordered GLUCOSE POC LAB TO COLLECT JPM [POC] QIDACANDBED Lab 03/15/21 07:30 Ordered GLUCOSE POC LAB TO COLLECT JPM [POC] QIDACANDBED Lab 03/15/21 11:30 Ordered GLUCOSE POC LAB TO COLLECT JPM [POC] QIDACANDBED Lab 03/15/21 16:30 Ordered GLUCOSE POC LAB TO COLLECT JPM [POC] QIDACANDBED Lab 03/15/21 21:00 Ordered GLUCOSE POC LAB TO COLLECT JPM [POC] QIDACANDBED Lab 03/16/21 07:30 Ordered GLUCOSE POC LAB TO COLLECT JPM [POC] QIDACANDBED Lab 03/16/21 11:30 Ordered GLUCOSE POC LAB TO COLLECT JPM [POC] QIDACANDBED Lab 03/16/21 16:30 Ordered GLUCOSE POC LAB TO COLLECT JPM [POC] QIDACANDBED Lab 03/16/21 21:00 Ordered GLUCOSE POC LAB TO COLLECT JPM [POC] QIDACANDBED Lab 03/17/21 07:30 Ordered Patient's Own Medication [Ptom] Med 03/11/21 07:30 Active 0 each PO ACBREAKFAST Patient's Own Medication [Ptom] Med 03/10/21 21:00 Active 0 each PO BEDTIME Phytonadione [Vitamin K] Med 03/10/21 17:00 Active 0 mcg PO QPM Warfarin [Coumadin] Med 03/11/21 13:00 Once 10 mg PO ONETIME ONE Warfarin [Coumadin] Med 03/12/21 13:00 Once 7.5 mg PO ONETIME ONE Medication Orders Acetaminophen (Acetaminophen 325 Mg Tab) 650 mg PO Q4H PRN PRN Reason: Pain/Fever Hydrocodone Bitart/Acetaminophen (Acetaminophen/Hydrocodone 325-5 Mg Tab) 1 tab PO Q4H PRN PRN Reason: Pain (mild 1-3) Atorvastatin Calcium (Atorvastatin 20 Mg Tab) 80 mg PO DAILY [facility] Last Admin: 03/11/21 09:14 Dose: 80 mg Documented by: JORGE Cosigned by: [id number] Admin: 03/10/21 09:06 Dose: 80 mg Documented by: VASILIY Bandage/Support Products (Nozin Nasal Money Room Teller) 1 applic NASBOTH BID [facility] Stop: 03/16/21 21:01 Last Admin: 03/11/21 09:06 Dose: 1 applic Documented by: JORGE Cosigned by: JOHNNY Admin: 03/10/21 20:17 Dose: 1 applic Documented by: Admin: 03/10/21 10:00 Dose: 1 applic Documented by: Admin: 03/10/21 02:49 Dose: Not Given Documented by: HERBERT Diazepam (Diazepam 2 Mg Tab) 2 mg PO ONETIME PRN PRN Reason: Spasms Last Admin: 03/09/21 17:32 Dose: 2 mg Documented by: [id number] Docusate Sodium (Docusate Sodium 100 Mg Cap) 100 mg PO DAILY [facility] Last Admin: 03/11/21 09:07 Dose: 100 mg Documented by: JORGE Cosigned by: [id number] Admin: 03/10/21 08:59 Dose: 100 mg Documented by: VASILIY Enoxaparin Sodium (Enoxaparin 120 Mg/0.8 Ml Syringe) 120 mg SUBCUT DAILY [facility] Last Admin: 03/11/21 09:27 Dose: 120 mg Documented by: JORGE Cosigned by: [id number] Admin: 03/10/21 09:02 Dose: 120 mg Documented by: VASILIY Ferrous Sulfate (Ferrous Sulfate 325 Mg Tab) 325 mg PO BID [facility] Last Admin: 03/11/21 09:13 Dose: 325 mg Documented by: JORGE Cosigned by: [id number] Admin: 03/10/21 20:17 Dose: 325 mg Documented by: Admin: 03/10/21 09:00 Dose: 325 mg Documented by: Admin: 03/09/21 20:21 Dose: 325 mg Documented by: HERBERT Gabapentin (Gabapentin 300 Mg Cap) 300 mg PO BID [facility] Last Admin: 03/11/21 09:17 Dose: 300 mg Documented by: JORGE Cosigned by: [id number] Admin: 03/10/21 20:17 Dose: 300 mg Documented by: Admin: 03/10/21 09:02 Dose: 300 mg Documented by: Admin: 03/09/21 20:21 Dose: 300 mg Documented by: HERBERT Hydrochlorothiazide (Hydrochlorothiazide 25 Mg Tab) 25 mg PO DAILY [facility] Last Admin: 03/11/21 09:10 Dose: 25 mg Documented by: JORGE Cosigned by: JOHNNY Admin: 03/10/21 09:01 Dose: 25 mg Documented by: VASILIY Hydroxyzine HCl (Hydroxyzine Hcl 25 Mg Tab) 50 mg PO Q8H PRN PRN Reason: Breakthrough Pain Last Admin: 03/09/21 19:13 Dose: 50 mg Documented by: HERBERT Sodium Chloride (Normal Saline) 1,000 mls @ 125 mls/hr IV ASDIRECTED [facility] Admin: 03/09/21 20:23 Dose: 125 mls/hr Documented by: HERBERT Insulin Glargine (Insulin Glargine,Human Rec. Analog 100 Units/Ml 3 Ml Pen) 90 units SUBCUT BEDTIME [facility] Last Admin: 03/10/21 21:42 Dose: 90 units Documented by: SHAVONNE Cosigned by: JON Admin: 03/09/21 22:03 Dose: 90 units Documented by: HERBERT Cosigned by: GABRIEL Insulin Human Lispro (Insulin Lispro 100 Unit/Ml 3 Ml Kwikpen) 24 unit SUBCUT TIDMEALS [facility] Admin: 03/11/21 07:17 Dose: 24 units Documented by: JORGE Cosigned by: JOHNNY Admin: 03/10/21 17:02 Dose: 24 units Documented by: VASILIY Cosigned by: BRITTANEY Admin: 03/10/21 12:17 Dose: 24 units Documented by: VASILIY Cosigned by: [email or web address] Admin: 03/10/21 09:07 Dose: 24 units Documented by: VASILIY Cosigned by: ADRIEL Admin: 03/09/21 18:07 Dose: 24 units Documented by: VASILIY Cosigned by: CLARK Ketorolac Tromethamine (Ketorolac 30 Mg/Ml Sdv) 15 mg IVPUSH Q8H PRN PRN Reason: Breakthrough Pain Stop: 03/14/21 13:55 Last Admin: 03/09/21 22:31 Dose: 15 mg Documented by: Admin: 03/09/21 14:54 Dose: 15 mg Documented by: VASILIY Losartan Potassium (Losartan 50 Mg Tab) 100 mg PO DAILY [facility] Last Admin: 03/11/21 09:10 Dose: 100 mg Documented by: JORGE Cosigned by: JOHNNY Admin: 03/10/21 09:01 Dose: 100 mg Documented by: VASILIY Morphine Sulfate (Morphine 2 Mg/Ml Syringe) 2 mg IV Q1H PRN PRN Reason: Breakthrough Pain Phytonadione [ Vitamin K] 100 Mcg Tab (Ptom) 0 mcg PO QPM [facility] Last Admin: 03/10/21 17:01 Dose: 100 mcg Documented by: VASILIY Ondansetron HCl (Ondansetron 4 Mg/2 Ml Sdv) 4 mg IVPUSH Q6H PRN PRN Reason: Nausea/Vomiting Last Admin: 03/09/21 16:15 Dose: 4 mg Documented by: VASILIY Oxycodone/Acetaminophen (Acetaminophen/Oxycodone 325-5 Mg Tab) 1 - 2 tab PO Q4H PRN PRN Reason: Pain Last Admin: 03/11/21 06:03 Dose: 2 tab Documented by: Admin: 03/11/21 01:55 Dose: 2 tab Documented by: Admin: 03/10/21 21:41 Dose: 2 tab Documented by: Admin: 03/10/21 16:59 Dose: 2 tab Documented by: Admin: 03/10/21 12:13 Dose: 2 tab Documented by: Admin: 03/10/21 07:42 Dose: 2 tab Documented by: Admin: 03/10/21 03:00 Dose: 2 tab Documented by: Admin: 03/09/21 20:22 Dose: 2 tab Documented by: Admin: 03/09/21 16:15 Dose: 2 tab Documented by: VASILIY Phenytoin 50mg Chew (Tab (Ptom)) 1 each PO QAM [facility] Last Admin: 03/11/21 09:19 Dose: 1 each Documented by: JORGE Cosigned by: JOHNNY Admin: 03/10/21 09:04 Dose: 1 each Documented by: VAISLIY Omeprazole 20mg Cap ((Ptom)) 0 each PO BEDTIME [facility] Last Admin: 03/10/21 20:17 Dose: 1 each Documented by: SHAVONNE Omeprazole 20mg Cap ((Ptom)) 0 each PO ACBREAKFAST [facility] Last Admin: 03/11/21 07:13 Dose: 1 each Documented by: JORGE Cosigned by: [id number] Phenytoin Sodium (Phenytoin 100 Mg Cap.Er) 200 mg PO BEDTIME [facility] Last Admin: 03/10/21 20:17 Dose: 200 mg Documented by: Admin: 03/09/21 20:22 Dose: 200 mg Documented by: HERBERT Phenytoin Sodium (Phenytoin 100 Mg Cap.Er) 200 mg PO QAM [facility] Last Admin: 03/11/21 09:18 Dose: 200 mg Documented by: JORGE Cosigned by: [id number] Admin: 03/10/21 09:05 Dose: 200 mg Documented by: VASILIY Potassium Chloride (Potassium Chloride 10 Meq Cap.Er) 10 meq PO QPM [facility] Last Admin: 03/10/21 17:04 Dose: 10 meq Documented by: Admin: 03/09/21 17:58 Dose: 10 meq Documented by: VASILIY Topiramate (Topiramate 100 Mg Tab) 100 mg PO QAM [facility] Last Admin: 03/11/21 09:20 Dose: 100 mg Documented by: OJRGE Cosigned by: [id number] Admin: 03/10/21 09:05 Dose: 100 mg Documented by: VASILIY Topiramate (Topiramate 100 Mg Tab) 200 mg PO QPM [facility] Last Admin: 03/10/21 17:04 Dose: 200 mg Documented by: Admin: 03/09/21 17:59 Dose: 200 mg Documented by: VASILIY Warfarin Sodium (Warfarin 5 Mg Tab) 10 mg PO ONETIME ONE Stop: 03/11/21 13:01 Warfarin Sodium (Warfarin 2.5 Mg Tab) 7.5 mg PO ONETIME ONE Stop: 03/12/21 13:01 - Assessment Assessment (Free Text/Narrative):: Patient is a pleasant 65 y/o female, s/p left hip revision, POD#2. Patient had no acute events overnight. Remains hemodynamically stable. Postoperative anemia stable; patient denied lightheadedness or dizziness with ambulation, nor vision changes. Patients pain is well controlled at this time with oral medications. Denied nausea or emesis with these medications. Tolerating consistent carbohydrate diet well. POC Glucoses have been within acceptable limits on home diabetes medication regimen. Patient has participated in PT and OT daily while in the hospital. Ambulation abilities are progressing, walking up to 145 ft with FWW and SBA. Does still require assistance with sit to stand transfers, as transitional positions are difficult. Patient also having difficulty with lifting left leg into/out of bed independently. Performing ADLs with assistance. Wright catheter discontinued POD#1; initially had difficulty voiding after cat heter removal. Has since voided without dysuria or urgency. IV maintenance fluids discontinued on POD#1. Dressing change performed on POD#2. Patient continues to require inpatient status at this time to allow for additional therapy services to work on left leg transfers and transitional positions. Will have OT work on leg clinical cytogeneticist/adaptive equipment to aid in this task. Exam: L LE neurovascular intact. Incision well approximated, steristrips above incision with dried drainage. No surrounding erythema nor active drainage. Mild ecchymosis around left hip. Diffuse LLE edema. Plan: * Patient to continue with PT and OT services daily while in the hospital * Continue with current pain regimen * Continue with Lovenox/Warfarin/vit K as ordered per Coumadin clinic bridging schedule. Has bilateral LE SCDs on for mechanical DVT/VTE prophylaxis. * Continue to monitor vitals q4 hrs. * Postoperative anemia stable at this time; continue to monitor for symptoms. May recheck a CBC if patient becomes symptomatic. * Anticipate dc to home when medically stable and improvements made with functional mobility of LLE. Outpatient PT now requested closer to home at [place]; orders have been provided to environmental emergencies planner to fax.
[2021-03-11] MEDS ORDERED: Polyethylene Glycol 3350 Powder 17 GM Packet PO PRN (10:22)
[2021-03-11] MEDS: hydrOXYzine HCl 25 MG Tab PO PRN ×2 (11:08→20:24)
[2021-03-11] MEDS ORDERED: Warfarin 5 MG Tab PO ONE (13:00)
[2021-03-11] MEDS: PHYTONADIONE 100 MCG PO SCH (17:24)
[2021-03-11] MEDS: Potassium Chloride 10 MEQ Cap.ER PO SCH (17:25)
[2021-03-11] MEDS: Acetaminophen/HYDROcodone 325-5 MG Tab PO PRN (18:41)
[2021-03-11] MEDS: Insulin Glargine,Human Rec. Analog 100 Units/ML 3 ML Pen SUBCUT SCH (20:33)
[2021-03-11] MEDS ORDERED: Calcium Carbonate 500 MG Tab.Chew PO PRN (22:23)
[2021-03-12] MEDS: hydrOXYzine HCl 25 MG Tab PO PRN (03:56)
[2021-03-12] MEDS: OMEPRAZOLE 20MG CAP (PTOM) PO SCH ×2 (07:27→21:05)
[2021-03-12] MEDS: Insulin Lispro 100 Unit/ML 3 ML KwikPen SUBCUT SCH ×3 (07:28→18:06)
[2021-03-12] MEDS: Acetaminophen/HYDROcodone 325-5 MG Tab PO PRN (07:35)
[2021-03-12] MEDS ORDERED: Polyethylene Glycol 3350 Powder 17 GM Packet PO PRN (08:39)
[2021-03-12] MEDS: Nozin Nasal Sanitizer NASBOTH SCH ×2 (09:26→20:58)
[2021-03-12] MEDS: Phenytoin 100 MG Cap.ER PO SCH ×2 (09:27→21:05)
[2021-03-12] MEDS: Gabapentin 300 MG Cap PO SCH ×2 (09:27→21:03)
[2021-03-12] MEDS: atorvaSTATin 20 MG Tab PO SCH (09:27)
[2021-03-12] MEDS: Losartan 50 MG Tab PO SCH (09:28)
[2021-03-12] MEDS: Docusate Sodium 100 MG Cap PO SCH (09:29)
[2021-03-12] MEDS: Topiramate 100 MG Tab PO SCH ×2 (09:29→16:30)
[2021-03-12] MEDS: Hydrochlorothiazide 25 MG Tab PO SCH (09:30)
[2021-03-12] MEDS: Ferrous Sulfate 325 MG Tab PO SCH ×2 (09:30→21:03)
[2021-03-12] MEDS: Enoxaparin 120 MG/0.8 ML Syringe SUBCUT SCH (09:30)
[2021-03-12] MEDS: PHENYTOIN 50 MG PO SCH (09:31)
[2021-03-12] MEDS: traMADol 50 MG Tab PO PRN ×2 (10:05→16:27)
--- NOTE | 2021-03-12 10:24 | CR ---
Pelvis 1V or 2V CLINICAL HISTORY: Hip arthroplasty with revision FINDINGS: Patient has had previous total hip arthroplasty. There has been revision with fixation wires in the trochanteric region IMPRESSION: Previous total hip arthroplasty with interval revision
--- NOTE | 2021-03-12 12:14 | OR ---
DATE OF PROCEDURE: 03/09/2021 SURGEON: Salo Herrmann MD PREOPERATIVE DIAGNOSES: 1. Painful left total hip arthroplasty. 2. Limb length discrepancy with left leg longer than right. POSTOPERATIVE DIAGNOSES: 1. Painful left total hip arthroplasty. 2. Limb length discrepancy with left leg longer than right. PROCEDURE: Revision of left femoral stem with release of adhesions utilizing Wily Albarran revision stem size 14 and a minus 3.5 neck length ceramic head. PRODUCTION SCHEDULER: JERRICA Sierra ANESTHESIA: Spinal with sedation. INDICATIONS: Bibiana is a pleasant 65-year-old female with a history of persistent difficulty with left hip pain. She had prior history of abductor tendon repair. This was followed years later by left total hip arthroplasty. This unfortunately resulted in approximately a centimeter and a half of lengthening of the left leg. She has had persistent pain in the left hip. Underwent release of adhesions and resection of a portion of the IT band in attempt to alleviate her symptoms. This resulted in some temporary relief. However, she is having persistent difficulty with pain, ambulation, weightbearing, and limb length discrepancy. She now presents for revision of the femoral stem in order to attempt to equalize limb lengths. Risks, benefits, potential complications were discussed including possibility this may not completely relieve her pain and that limb lengths may not be exactly equal following the procedure. DESCRIPTION OF PROCEDURE: After adequate anesthesia was obtained, patient placed in lateral decubitus position and secured with the hip positioner. Left hip and leg were prepped and draped in a sterile fashion. Position of the leg and lengths were noted, both with the leg adducted to the other limb and with an abduction bolster. The patient was noted to have significantly tight IT band with the leg adducted. After prep and drape, previous incision was utilized, carried down through the subcutaneous tissues, and extended slightly superiorly and distally. This was carried down through the subcutaneous tissues with electrocautery and hemostasis was controlled. Level of the tensor fascia and IT band was identified. Previous sutures were cut and IT band was then split in line with its fibers. Mild adhesions were noted anteriorly between the tensor fascia and the quadriceps. No significant adhesions noted posteriorly. The hip was internally rotated, and the femoral head and neck were exposed. Dissection carried more proximally along the rim of the acetabular cup. This was noted to be firmly integrated. While dissecting superiorly along the abductors, a very tight band of scar tissue was noted overlying the gluteus medius and this was released allowing better mobilization of the gluteus medius. A Steinmann pin was placed perpendicular to the floor in the acetabulum above the acetabular cup. With the leg positioned on the abduction bolster in neutral rotation, the position of the most superior extent of the greater trochanter was marked and this distance was measured at 3.5 cm. The hip was then dislocated and the femoral head removed. No abnormalities were noted around the acetabulum or acetabular liner and the liner was firmly engaged in the cup. Trochanteric osteotomy was planned for a distance of 6 cm from the shoulder, which would take it down to the extent of the bone ingrowth portion of the stem. Oscillating saw was used to make the cut along the posterior margin of the femur down to the stem and then directed anteriorly distally. Using combination of small straight and curved osteotomes as well as flexible osteotomes, the proximal shoulder and calcar were loosened. Flexible osteotomes placed anteriorly. The osteotomy was elevated anteriorly exposing the posterior aspect of the stem. A Gigli saw was then placed around the prosthesis proximally, maneuvered between the stem and the calcar and then worked distally down to the extent of the osteotomy. After removing just a very small portion of additional ingrowth, stem could be easily removed. The osteotomy was then reduced back into position and held provisionally with a small trochanteric fixation plate and 3 cables. This placed the trochanter and osteotomy back into anatomic position. The canal was then sequentially reamed by hand with the reamers for the Albarran stem. The smallest diameter stem of 14 mm was selected with the revision length chosen due to the standard Albarran being just barely 2 diameters distal to the osteotomy. Did have a fairly small canal and the canal reamers were utilized very carefully in order to prevent any distal fracture. Trial stem was then tapped into position. Osteotomy tightened around the stem and the position of the stem was placed in order to attempt to get the center of rotation of the femoral head level with the greater trochanter. Once this was accomplished, the hip was reduced with a minus 3.5 neck length. This provided excellent stability in flexion, adduction, and internal rotation. Had just a slight amount of play with distal traction, showed much better extension with less tension and less tension on the IT band with the hip adducted. Abduction bolster was placed between the legs once again and the distance between the Steinmann pin and tip of the trochanter was measured at just under 2.5 cm resulting in slightly more than 1 cm shortening. Position of the knees and feet was also evaluated and it was determined that this would very nearly restore limb length. The hip was dislocated and the trial stem was removed. It was irrigated. Revision stem was tapped into position and again care was taken to do this slowly, allow accommodation of the stem distally, and to place the center of rotation at the level of the greater trochanter. Cables on the trochanteric osteotomy were tensioned and crimped into position and cut. A trial reduction with a minus 3.5 neck length was done once again and limb length was measured against the Steinmann pin, again showing just over a centimeter of shortening, which was the goal. Trials were removed. Final ceramic head was tapped into position and the hip was reduced. This again showed very good stability in flexion, adduction, and internal rotation. The hip was thoroughly irrigated. This was followed by a dilute Betadine irrigation and 2nd irrigation with pulse lavage. Tensor fascia was closed with 2-0 Ethibond leaving a small portion directly over the trochanteric reduction plate released, which was the area of the previous IT band resection in order to prevent impingement and previous problems with pain. Skin was closed with 2-0 Vicryl and a running 3-0 Monocryl. Steri-Strips were applied. Patient tolerated the procedure very well. There were no complications. Minimal blood loss, and she was taken from the operating room in stable condition. Salo Herrmann MD /[id number] [place]
--- NOTE | 2021-03-12 12:56 | PCM.SURGPN ---
- General Info Date of Service: 03/12/21 Date of Surgery/Procedure: 03/09/21 POD#: 3 Admission Diagnosis/Problem: Hip pain Functional Status: Reports: Tolerating Diet, Ambulating (with FWW ), Urinating - Review of Systems General: Denies: Fever, Weakness, Chills Pulmonary: Denies: Shortness of Breath Cardiovascular: Denies: Chest Pain, Dyspnea on Exertion Genitourinary: Denies: Dysuria, Urgency Musculoskeletal: Reports: Leg Pain (left ), Joint Pain (left hip ) Skin: Reports: No Symptoms - Patient Data Vitals - Most Recent: Last Vital Signs Temp 97.7 F 03/12/21 11:23 Pulse 86 03/12/21 11:23 Resp 18 03/12/21 11:23 BP 126/50 L 03/12/21 11:23 Pulse Ox 94 L 03/12/21 11:23 Weight - Most Recent: 162 lb 3.105 oz I&O - Last 24 Hours: Intake & Output 03/11/21 03/12/21 03/12/21 22:59 06:59 14:59 Intake Total 400 400 Balance 400 400 Lab Results Last 24 Hrs: Laboratory Results - last 24 hr 03/11/21 Range/Units 16:15 POC Glucose 161 H (74-106) mg/dL Med Orders - Current: Current Medications Acetaminophen (Acetaminophen 325 Mg Tab) 650 mg PO Q4H PRN PRN Reason: Pain/Fever Hydrocodone Bitart/Acetaminophen (Acetaminophen/Hydrocodone 325-5 Mg Tab) 1 - 2 tab PO Q4H PRN PRN Reason: Pain Last Admin: 03/12/21 07:35 Dose: 1 tab Documented by: Atorvastatin Calcium (Atorvastatin 20 Mg Tab) 80 mg PO DAILY [facility] Last Admin: 03/12/21 09:27 Dose: 80 mg Documented by: Bandage/Support Products (Nozin Nasal Tariff Compiling Clerk) 1 applic NASBOTH BID ENA Stop: 03/16/21 21:01 Last Admin: 03/12/21 09:26 Dose: 1 applic Documented by: Calcium Carbonate/Glycine (Calcium Carbonate 500 Mg Tab.Chew) 1,000 mg PO Q2H PRN PRN Reason: Indigestion Diazepam (Diazepam 2 Mg Tab) 2 mg PO ONETIME PRN PRN Reason: Spasms Last Admin: 03/09/21 17:32 Dose: 2 mg Documented by: Docusate Sodium (Docusate Sodium 100 Mg Cap) 100 mg PO DAILY [facility] Last Admin: 03/12/21 09:29 Dose: 100 mg Documented by: Enoxaparin Sodium (Enoxaparin 120 Mg/0.8 Ml Syringe) 120 mg SUBCUT DAILY [facility] Last Admin: 03/12/21 09:30 Dose: 120 mg Documented by: Ferrous Sulfate (Ferrous Sulfate 325 Mg Tab) 325 mg PO BID [facility] Last Admin: 03/12/21 09:30 Dose: 325 mg Documented by: Gabapentin (Gabapentin 300 Mg Cap) 300 mg PO BID [facility] Last Admin: 03/12/21 09:27 Dose: 300 mg Documented by: Hydrochlorothiazide (Hydrochlorothiazide 25 Mg Tab) 25 mg PO DAILY [facility] Last Admin: 03/12/21 09:30 Dose: 25 mg Documented by: Sodium Chloride (Normal Saline) 1,000 mls @ 125 mls/hr IV ASDIRECTED [facility] Last Admin: 03/09/21 20:23 Dose: 125 mls/hr Documented by: Insulin Glargine (Insulin Glargine,Human Rec. Analog 100 Units/Ml 3 Ml Pen) 90 units SUBCUT BEDTIME [facility] Last Admin: 03/11/21 20:33 Dose: 90 units Documented by: Insulin Human Lispro (Insulin Lispro 100 Unit/Ml 3 Ml Kwikpen) 24 unit SUBCUT TIDMEALS [facility] Last Admin: 03/12/21 07:28 Dose: 24 units Documented by: Ketorolac Tromethamine (Ketorolac 30 Mg/Ml Sdv) 15 mg IVPUSH Q8H PRN PRN Reason: Breakthrough Pain Stop: 03/14/21 13:55 Last Admin: 03/09/21 22:31 Dose: 15 mg Documented by: Losartan Potassium (Losartan 50 Mg Tab) 100 mg PO DAILY [facility] Last Admin: 03/12/21 09:28 Dose: 100 mg Documented by: Phytonadione [ Vitamin K] 100 Mcg Tab (Ptom) 0 mcg PO QPM [facility] Last Admin: 03/11/21 17:24 Dose: 100 mcg Documented by: Ondansetron HCl (Ondansetron 4 Mg/2 Ml Sdv) 4 mg IVPUSH Q6H PRN PRN Reason: Nausea/Vomiting Last Admin: 03/09/21 16:15 Dose: 4 mg Documented by: Oxycodone/Acetaminophen (Acetaminophen/Oxycodone 325-5 Mg Tab) 1 - 2 tab PO Q4H PRN PRN Reason: Pain Last Admin: 03/11/21 10:02 Dose: 2 tab Documented by: Phenytoin 50mg Chew (Tab (Ptom)) 1 each PO QAM [facility] Last Admin: 03/12/21 09:31 Dose: 1 each Documented by: Omeprazole 20mg Cap ((Ptom)) 0 each PO BEDTIME [facility] Last Admin: 03/11/21 20:27 Dose: 2 each Documented by: Omeprazole 20mg Cap ((Ptom)) 0 each PO ACBREAKFAST [facility] Last Admin: 03/12/21 07:27 Dose: 1 each Documented by: Phenytoin Sodium (Phenytoin 100 Mg Cap.Er) 200 mg PO BEDTIME [facility] Last Admin: 03/11/21 20:27 Dose: 200 mg Documented by: Phenytoin Sodium (Phenytoin 100 Mg Cap.Er) 200 mg PO QAM [facility] Last Admin: 03/12/21 09:27 Dose: 200 mg Documented by: Polyethylene Glycol (Polyethylene Glycol 3350 Powder 17 Gm Packet) 17 gm PO ONETIME PRN PRN Reason: Constipation Potassium Chloride (Potassium Chloride 10 Meq Cap.Er) 10 meq PO QPM [facility] Last Admin: 03/11/21 17:25 Dose: 10 meq Documented by: Topiramate (Topiramate 100 Mg Tab) 100 mg PO QAM [facility] Last Admin: 03/12/21 09:29 Dose: 100 mg Documented by: Topiramate (Topiramate 100 Mg Tab) 200 mg PO QPM [facility] Last Admin: 03/11/21 17:26 Dose: 200 mg Documented by: Tramadol HCl (Tramadol 50 Mg Tab) 50 mg PO Q6H PRN PRN Reason: Pain (mild 1-3) Last Admin: 03/12/21 10:05 Dose: 50 mg Documented by: Warfarin Sodium (Warfarin 2.5 Mg Tab) 7.5 mg PO ONETIME ONE Stop: 03/12/21 13:01 Discontinued Medications Hydrocodone Bitart/Acetaminophen (Acetaminophen/Hydrocodone 325-5 Mg Tab) 1 tab PO Q4H PRN PRN Reason: Pain (mild 1-3) Last Admin: 03/11/21 14:40 Dose: 1 tab Documented by: Bandage/Support Products (Nozin Nasal Tariff Compiling Clerk) 1 applic NASBOTH ONETIME ONE Stop: 03/09/21 08:01 Last Admin: 03/09/21 08:33 Dose: 3 swab Documented by: Ephedrine Sulfate (Ephedrine 50 Mg/Ml Sdv) Confirm Administered Dose 50 mg .ROUTE .STK-MED ONE Stop: 03/09/21 11:57 Fentanyl (Fentanyl 100 Mcg/2 Ml Sdv) Confirm Administered Dose 100 mcg .ROUTE .STK-MED ONE Stop: 03/09/21 08:32 Fentanyl (Fentanyl 100 Mcg/2 Ml Sdv) Confirm Administered Dose 100 mcg .ROUTE .STK-MED ONE Stop: 03/09/21 12:56 Hydroxyzine HCl (Hydroxyzine Hcl 25 Mg Tab) 50 mg PO Q8H PRN PRN Reason: Breakthrough Pain Last Admin: 03/12/21 03:56 Dose: 50 mg Documented by: Lactated Ringer's (Ringers, Lactated) 1,000 mls @ 75 mls/hr IV ASDIRECTED [facility] Last Admin: 03/09/21 08:32 Dose: 75 mls/hr Documented by: Cefazolin Sodium/Dextrose 2 gm (/ Premix) 50 mls @ 100 mls/hr IV ONETIME ONE Stop: 03/09/21 08:59 Last Admin: 03/09/21 10:30 Dose: 100 mls/hr Documented by: Lactated Ringer's (Ringers, Lactated) Confirm Administered Dose 1,000 mls @ as directed .ROUTE .STK-MED ONE Stop: 03/09/21 11:08 Lactated Ringer's (Ringers, Lactated) Confirm Administered Dose 1,000 mls @ as directed .ROUTE .STK-MED ONE Stop: 03/09/21 13:08 Cefazolin Sodium/Dextrose 1 gm (/ Premix) 50 mls @ 100 mls/hr IV Q8H [facility] Stop: 03/10/21 10:59 Last Infusion: 03/10/21 11:33 Dose: 100 mls/hr Documented by: Midazolam HCl (Midazolam 1 Mg/Ml 2 Ml Sdv) Confirm Administered Dose 2 mg .ROUTE .STK-MED ONE Stop: 03/09/21 08:32 Midazolam HCl (Midazolam 1 Mg/Ml 2 Ml Sdv) Confirm Administered Dose 2 mg .ROUTE .STK-MED ONE Stop: 03/09/21 11:45 Midazolam HCl (Midazolam 1 Mg/Ml 2 Ml Sdv) Confirm Administered Dose 2 mg .ROUTE .STK-MED ONE Stop: 03/09/21 12:41 Morphine Sulfate (Morphine 2 Mg/Ml Syringe) 1 mg SUBCUT Q1H PRN PRN Reason: Breakthrough Pain Morphine Sulfate (Morphine 2 Mg/Ml Syringe) 1 mg IV Q1H PRN PRN Reason: Breakthrough Pain Last Admin: 03/09/21 18:21 Dose: 1 mg Documented by: Morphine Sulfate (Morphine 2 Mg/Ml Syringe) 2 mg IVPUSH ONETIME ONE Stop: 03/09/21 13:59 Last Admin: 03/09/21 14:03 Dose: 2 mg Documented by: Morphine Sulfate (Morphine 2 Mg/Ml Syringe) 2 mg IV Q1H PRN PRN Reason: Breakthrough Pain Pantoprazole Sodium (Pantoprazole 40 Mg Tab.Cr) 40 mg PO BIDAC ENA Last Admin: 03/10/21 07:42 Dose: 40 mg Documented by: Polyethylene Glycol (Polyethylene Glycol 3350 Powder 17 Gm Packet) 17 gm PO ONETIME PRN PRN Reason: Constipation Last Admin: 03/11/21 14:40 Dose: 17 gm Documented by: Povidone Iodine (Povidone-Iodine 10% Soln 118.25 Ml Bottle) Confirm Administered Dose 1 ml .ROUTE .STK-MED ONE Stop: 03/09/21 06:32 Propofol (Propofol 200 Mg/20 Ml Sdv) Confirm Administered Dose 200 mg .ROUTE .STK-MED ONE Stop: 03/09/21 08:32 Propofol (Propofol 200 Mg/20 Ml Sdv) Confirm Administered Dose 200 mg .ROUTE .STK-MED ONE Stop: 03/09/21 12:10 Warfarin Sodium (Warfarin 5 Mg Tab) 10 mg PO ONETIME ONE Stop: 03/10/21 13:01 Last Admin: 03/10/21 12:18 Dose: 10 mg Documented by: Warfarin Sodium (Warfarin 5 Mg Tab) 10 mg PO ONETIME ONE Stop: 03/11/21 13:01 Last Admin: 03/11/21 12:56 Dose: 10 mg Documented by: Warfarin Sodium (Warfarin 2.5 Mg Tab) 7.5 mg PO ONETIME ONE Stop: 03/09/21 17:01 Last Admin: 03/09/21 17:57 Dose: 7.5 mg Documented by: - Exam Wound/Incisions: Healing Well, Dressing Dry and Intact, No Drainage General: Alert, Oriented, No Acute Distress Extremities: Normal Capillary Refill, Pedal Edema, Leg Pain (left ), Limited Range of Motion (from postoperative pain ). No: Freddy's Sign Skin: Dry, Intact Neurological: No New Focal Deficit Psy/Mental Status: Alert, Normal Affect, Normal Mood Sepsis Event Note - Evaluation Sepsis Screening Result: No Definite Risk - Focused Exam Vital Signs: Vital Signs Temp Pulse Resp BP BP Pulse Ox 03/12/21 11:23 97.7 F 86 18 126/50 L 94 L 03/12/21 09:28 141/61 H 03/12/21 07:23 97.5 F 88 16 141/61 H 95 03/12/21 03:12 98.7 F 89 16 93 L - Problem List & Annotations (1) Status post hip surgery SNOMED Code(s): 189879584, 815673453 Code(s): Z98.890 - OTHER SPECIFIED POSTPROCEDURAL STATES Status: Acute Current Visit: No Annotation/Comment:: left hip revision, replacement of femoral prosthetic. DOS: 03/09/21 (2) Postoperative anemia SNOMED Code(s): 491664084, 970048535 Code(s): D64.9 - ANEMIA, UNSPECIFIED Status: Acute Current Visit: Yes - Problem List Review Problem List Initiated/Reviewed/Updated: Yes - My Orders Last 24 Hours: Active Orders 24 hr Category Date Time Status Communication Order [RC] ASDIRECTED Care 03/12/21 08:04 Active GLUCOSE POC LAB TO COLLECT JPM [POC] QIDACANDBED Lab 03/13/21 07:30 Ordered GLUCOSE POC LAB TO COLLECT JPM [POC] QIDACANDBED Lab 03/13/21 11:30 Ordered GLUCOSE POC LAB TO COLLECT JPM [POC] QIDACANDBED Lab 03/13/21 16:30 Ordered GLUCOSE POC LAB TO COLLECT JPM [POC] QIDACANDBED Lab 03/13/21 21:00 Ordered GLUCOSE POC LAB TO COLLECT JPM [POC] QIDACANDBED Lab 03/14/21 07:30 Ordered GLUCOSE POC LAB TO COLLECT JPM [POC] QIDACANDBED Lab 03/14/21 11:30 Ordered GLUCOSE POC LAB TO COLLECT JPM [POC] QIDACANDBED Lab 03/14/21 16:30 Ordered GLUCOSE POC LAB TO COLLECT JPM [POC] QIDACANDBED Lab 03/14/21 21:00 Ordered GLUCOSE POC LAB TO COLLECT JPM [POC] QIDACANDBED Lab 03/15/21 07:30 Ordered GLUCOSE POC LAB TO COLLECT JPM [POC] QIDACANDBED Lab 03/15/21 11:30 Ordered GLUCOSE POC LAB TO COLLECT JPM [POC] QIDACANDBED Lab 03/15/21 16:30 Ordered GLUCOSE POC LAB TO COLLECT JPM [POC] QIDACANDBED Lab 03/15/21 21:00 Ordered GLUCOSE POC LAB TO COLLECT JPM [POC] QIDACANDBED Lab 03/16/21 07:30 Ordered GLUCOSE POC LAB TO COLLECT JPM [POC] QIDACANDBED Lab 03/16/21 11:30 Ordered GLUCOSE POC LAB TO COLLECT JPM [POC] QIDACANDBED Lab 03/16/21 16:30 Ordered GLUCOSE POC LAB TO COLLECT JPM [POC] QIDACANDBED Lab 03/16/21 21:00 Ordered GLUCOSE POC LAB TO COLLECT JPM [POC] QIDACANDBED Lab 03/17/21 07:30 Ordered Acetaminophen/HYDROcodone [[place] 325-5 MG] Med 03/11/21 16:37 Active 1 - 2 tab PO Q4H PRN Calcium Carbonate [Tums] Med 03/11/21 22:23 Active 1,000 mg PO Q2H PRN Warfarin [Coumadin] Med 03/12/21 13:00 Once 7.5 mg PO ONETIME ONE polyethylene glycoL 3350 [MiraLAX] Med 03/12/21 08:39 Active 17 gm PO ONETIME PRN traMADol [Ultram] Med 03/12/21 08:11 Active 50 mg PO Q6H PRN Medication Orders Acetaminophen (Acetaminophen 325 Mg Tab) 650 mg PO Q4H PRN PRN Reason: Pain/Fever Hydrocodone Bitart/Acetaminophen (Acetaminophen/Hydrocodone 325-5 Mg Tab) 1 - 2 tab PO Q4H PRN PRN Reason: Pain Last Admin: 03/12/21 07:35 Dose: 1 tab Documented by: Admin: 03/11/21 18:41 Dose: 1 tab Documented by: ELANA Atorvastatin Calcium (Atorvastatin 20 Mg Tab) 80 mg PO DAILY [facility] Last Admin: 03/12/21 09:27 Dose: 80 mg Documented by: Admin: 03/11/21 09:14 Dose: 80 mg Documented by: JORGE Cosigned by: JOHNNY Admin: 03/10/21 09:06 Dose: 80 mg Documented by: VASILIY Bandage/Support Products (Nozin Nasal Tariff Compiling Clerk) 1 applic NASBOTH BID [facility] Stop: 03/16/21 21:01 Last Admin: 03/12/21 09:26 Dose: 1 applic Documented by: Admin: 03/11/21 20:24 Dose: 1 applic Documented by: Admin: 03/11/21 09:06 Dose: 1 applic Documented by: JORGE Cosigned by: JOHNNY Admin: 03/10/21 20:17 Dose: 1 applic Documented by: Admin: 03/10/21 10:00 Dose: 1 applic Documented by: Admin: 03/10/21 02:49 Dose: Not Given Documented by: HERBERT Calcium Carbonate/Glycine (Calcium Carbonate 500 Mg Tab.Chew) 1,000 mg PO Q2H PRN PRN Reason: Indigestion Diazepam (Diazepam 2 Mg Tab) 2 mg PO ONETIME PRN PRN Reason: Spasms Last Admin: 03/09/21 17:32 Dose: 2 mg Documented by: [email or web address] Docusate Sodium (Docusate Sodium 100 Mg Cap) 100 mg PO DAILY [facility] Last Admin: 03/12/21 09:29 Dose: 100 mg Documented by: Admin: 03/11/21 09:07 Dose: 100 mg Documented by: JORGE Cosigned by: JOHNNY Admin: 03/10/21 08:59 Dose: 100 mg Documented by: VASILIY Enoxaparin Sodium (Enoxaparin 120 Mg/0.8 Ml Syringe) 120 mg SUBCUT DAILY [facility] Last Admin: 03/12/21 09:30 Dose: 120 mg Documented by: Admin: 03/11/21 09:27 Dose: 120 mg Documented by: JORGE Cosigned by: [id number] Admin: 03/10/21 09:02 Dose: 120 mg Documented by: VASILIY Ferrous Sulfate (Ferrous Sulfate 325 Mg Tab) 325 mg PO BID [facility] Last Admin: 03/12/21 09:30 Dose: 325 mg Documented by: Admin: 03/11/21 20:25 Dose: 325 mg Documented by: Admin: 03/11/21 09:13 Dose: 325 mg Documented by: JORGE Cosigned by: JOHNNY Admin: 03/10/21 20:17 Dose: 325 mg Documented by: Admin: 03/10/21 09:00 Dose: 325 mg Documented by: Admin: 03/09/21 20:21 Dose: 325 mg Documented by: HERBERT Gabapentin (Gabapentin 300 Mg Cap) 300 mg PO BID [facility] Admin: 03/12/21 09:27 Dose: 300 mg Documented by: Admin: 03/11/21 20:25 Dose: 300 mg Documented by: Admin: 03/11/21 09:17 Dose: 300 mg Documented by: JORGE Cosigned by: JOHNNY Admin: 03/10/21 20:17 Dose: 300 mg Documented by: Admin: 03/10/21 09:02 Dose: 300 mg Documented by: Admin: 03/09/21 20:21 Dose: 300 mg Documented by: HERBERT Hydrochlorothiazide (Hydrochlorothiazide 25 Mg Tab) 25 mg PO DAILY [facility] Admin: 03/12/21 09:30 Dose: 25 mg Documented by: Admin: 03/11/21 09:10 Dose: 25 mg Documented by: JORGE Cosigned by: JOHNNY Admin: 03/10/21 09:01 Dose: 25 mg Documented by: VASILIY Sodium Chloride (Normal Saline) 1,000 mls @ 125 mls/hr IV ASDIRECTED [facility] Admin: 03/09/21 20:23 Dose: 125 mls/hr Documented by: HERBERT Insulin Glargine (Insulin Glargine,Human Rec. Analog 100 Units/Ml 3 Ml Pen) 90 units SUBCUT BEDTIME [facility] Admin: 03/11/21 20:33 Dose: 90 units Documented by: BRITTANEY Cosigned by: KAITLYNN Admin: 03/10/21 21:42 Dose: 90 units Documented by: SHAVONNE Cosigned by: JON Admin: 03/09/21 22:03 Dose: 90 units Documented by: HERBERT Cosigned by: GABRIEL Insulin Human Lispro (Insulin Lispro 100 Unit/Ml 3 Ml Kwikpen) 24 unit SUBCUT TIDMEALS [facility] Admin: 03/12/21 07:28 Dose: 24 units Documented by: ELANA Cosigned by: TYLER Admin: 03/11/21 17:30 Dose: 24 units Documented by: ELANA Cosigned by: BRITTANEY Admin: 03/11/21 13:01 Dose: 24 units Documented by: JORGE Cosigned by: JOHNNY Admin: 03/11/21 07:17 Dose: 24 units Documented by: JORGE Cosigned by: JOHNNY Admin: 03/10/21 17:02 Dose: 24 units Documented by: VASILIY Cosigned by: BRITTANEY Admin: 03/10/21 12:17 Dose: 24 units Documented by: VASILIY Cosigned by: TEJAS Admin: 03/10/21 09:07 Dose: 24 units Documented by: VASILIY Herreraigned by: ENACHRISTIAN Admin: 03/09/21 18:07 Dose: 24 units Documented by: VASILIY Ko by: CLARK Ketorolac Tromethamine (Ketorolac 30 Mg/Ml Sdv) 15 mg IVPUSH Q8H PRN PRN Reason: Breakthrough Pain Stop: 03/14/21 13:55 Last Admin: 03/09/21 22:31 Dose: 15 mg Documented by: Admin: 03/09/21 14:54 Dose: 15 mg Documented by: VASILIY Losartan Potassium (Losartan 50 Mg Tab) 100 mg PO DAILY [facility] Last Admin: 03/12/21 09:28 Dose: 100 mg Documented by: Admin: 03/11/21 09:10 Dose: 100 mg Documented by: JORGE Cosigned by: JOHNNY Admin: 03/10/21 09:01 Dose: 100 mg Documented by: VASILIY Phytonadione [ Vitamin K] 100 Mcg Tab (Ptom) 0 mcg PO QPM [facility] Last Admin: 03/11/21 17:24 Dose: 100 mcg Documented by: Admin: 03/10/21 17:01 Dose: 100 mcg Documented by: VASILIY Ondansetron HCl (Ondansetron 4 Mg/2 Ml Sdv) 4 mg IVPUSH Q6H PRN PRN Reason: Nausea/Vomiting Last Admin: 03/09/21 16:15 Dose: 4 mg Documented by: VASILIY Oxycodone/Acetaminophen (Acetaminophen/Oxycodone 325-5 Mg Tab) 1 - 2 tab PO Q4H PRN PRN Reason: Pain Last Admin: 03/11/21 10:02 Dose: 2 tab Documented by: JORGE Cosigned by: JOHNNY Admin: 03/11/21 06:03 Dose: 2 tab Documented by: Admin: 03/11/21 01:55 Dose: 2 tab Documented by: Admin: 03/10/21 21:41 Dose: 2 tab Documented by: Admin: 03/10/21 16:59 Dose: 2 tab Documented by: Admin: 03/10/21 12:13 Dose: 2 tab Documented by: Admin: 03/10/21 07:42 Dose: 2 tab Documented by: Admin: 03/10/21 03:00 Dose: 2 tab Documented by: Admin: 03/09/21 20:22 Dose: 2 tab Documented by: Admin: 03/09/21 16:15 Dose: 2 tab Documented by: VASILIY Phenytoin 50mg Chew (Tab (Ptom)) 1 each PO QAM [facility] Last Admin: 03/12/21 09:31 Dose: 1 each Documented by: Admin: 03/11/21 09:19 Dose: 1 each Documented by: JORGE Herreraigned by: JOHNNY Admin: 03/10/21 09:04 Dose: 1 each Documented by: VASILIY Omeprazole 20mg Cap ((Ptom)) 0 each PO BEDTIME [facility] Last Admin: 03/11/21 20:27 Dose: 2 each Documented by: Admin: 03/10/21 20:17 Dose: 1 each Documented by: SHAVONNE Omeprazole 20mg Cap ((Ptom)) 0 each PO ACBREAKFAST [facility] Last Admin: 03/12/21 07:27 Dose: 1 each Documented by: Admin: 03/11/21 07:13 Dose: 1 each Documented by: JORGE Cosigned by: JOHNNY Phenytoin Sodium (Phenytoin 100 Mg Cap.Er) 200 mg PO BEDTIME [facility] Last Admin: 03/11/21 20:27 Dose: 200 mg Documented by: Admin: 03/10/21 20:17 Dose: 200 mg Documented by: Admin: 03/09/21 20:22 Dose: 200 mg Documented by: HERBERT Phenytoin Sodium (Phenytoin 100 Mg Cap.Er) 200 mg PO QAM [facility] Last Admin: 03/12/21 09:27 Dose: 200 mg Documented by: Admin: 03/11/21 09:18 Dose: 200 mg Documented by: JORGE Cosigned by: JOHNNY Admin: 03/10/21 09:05 Dose: 200 mg Documented by: VASILIY Polyethylene Glycol (Polyethylene Glycol 3350 Powder 17 Gm Packet) 17 gm PO ONETIME PRN PRN Reason: Constipation Potassium Chloride (Potassium Chloride 10 Meq Cap.Er) 10 meq PO QPM [facility] Last Admin: 03/11/21 17:25 Dose: 10 meq Documented by: Admin: 03/10/21 17:04 Dose: 10 meq Documented by: Admin: 03/09/21 17:58 Dose: 10 meq Documented by: VASILIY Topiramate (Topiramate 100 Mg Tab) [facility] [place] [facility] Admin: 03/12/21 09:29 Dose: 100 mg Documented by: Admin: 03/11/21 09:20 Dose: 100 mg Documented by: JORGE Cosigned by: [id number] Admin: 03/10/21 09:05 Dose: 100 mg Documented by: VASILIY Topiramate (Topiramate 100 Mg Tab) 200 mg PO QPM [facility] Last Admin: 03/11/21 17:26 Dose: 200 mg Documented by: Admin: 03/10/21 17:04 Dose: 200 mg Documented by: Admin: 03/09/21 17:59 Dose: 200 mg Documented by: VASILIY Tramadol HCl (Tramadol 50 Mg Tab) 50 mg PO Q6H PRN PRN Reason: Pain (mild 1-3) Last Admin: 03/12/21 10:05 Dose: 50 mg Documented by: ELANA Warfarin Sodium (Warfarin 2.5 Mg Tab) 7.5 mg PO ONETIME ONE Stop: 03/12/21 13:01 - Assessment Assessment (Free Text/Narrative):: Patient is a 65-year-old female, status post left hip revision, postop day #3. No acute events overnight. Patient remains hemodynamically stable. Postoperative anemia stable at this time; denied lightheadedness, dizziness, dyspnea, nor vision changes. Patient has been compliant with physical and occupational therapy daily while in the hospital. Patient had a very difficult time yesterday with lifting left lower extremity into and out of bed with transfers. Attempts were made with occupational therapy to use a leg personal property appraiser, of which patient reported difficulty using this tool. Continues to struggle with lifting leg today. Patient has been ambulating, up to 140 ft with FWW and SBA. Patient reports increased tremors into bilateral hands, patient believes this to be from the pain medications. Denied nausea or emesis. Tolerating consistent carbohydrate diet well. POC glucoses have been within acceptable limits. Pain had been well controlled with oral Percocet and [place], however, patient does not wish to use because of increased tremors in hands. Transition made to Tramadol POD#3. Denied calf pain. Denied paresthesias to the LLE. Patient Wright discontinued POD#1. Has been urinating without dysuria or urgency. Requires inpatient status at this time for additional therapy services to progress functional mobility of left leg with transfers into/out of bed, in addition to obtaining adequate pain control. Plan: * Continue with PT and OT services daily while in the hospital to progress functional mobility of LLE. * Will try Tramadol for pain control and see if patient tolerates this with decreased tremors. * Postoperative anemia stable at this time. Continue to monitor for symptoms. May recheck CBC if becomes symptomatic. * Will check PT/INR tomorrow as requested by [facility]. * Anticipate discharge to home tomorrow if medically stable and functional mobility of LLE improves.
[2021-03-12] MEDS ORDERED: Warfarin 2.5 MG Tab PO ONE (13:00)
[2021-03-12] MEDS: PHYTONADIONE 100 MCG PO SCH (16:26)
[2021-03-12] MEDS: Potassium Chloride 10 MEQ Cap.ER PO SCH (16:29)
[2021-03-12] MEDS: Insulin Glargine,Human Rec. Analog 100 Units/ML 3 ML Pen SUBCUT SCH (21:01)
[2021-03-13] MEDS: traMADol 50 MG Tab PO PRN ×3 (02:28→13:26)
[2021-03-13] MEDS: Insulin Lispro 100 Unit/ML 3 ML KwikPen SUBCUT SCH ×2 (07:28→12:02)
[2021-03-13] MEDS: OMEPRAZOLE 20MG CAP (PTOM) PO SCH (07:29)
[2021-03-13] MEDS ORDERED: Bisacodyl 10 MG Supp RECTAL PRN (08:04)
[2021-03-13] MEDS: Ferrous Sulfate 325 MG Tab PO SCH (08:30)
[2021-03-13] MEDS: Gabapentin 300 MG Cap PO SCH (08:30)
[2021-03-13] MEDS: Topiramate 100 MG Tab PO SCH (08:30)
[2021-03-13] MEDS: atorvaSTATin 20 MG Tab PO SCH (08:30)
[2021-03-13] MEDS: Hydrochlorothiazide 25 MG Tab PO SCH (08:30)
[2021-03-13] MEDS: Docusate Sodium 100 MG Cap PO SCH (08:30)
[2021-03-13] MEDS: Losartan 50 MG Tab PO SCH (08:30)
[2021-03-13] MEDS: Nozin Nasal Sanitizer NASBOTH SCH (08:31)
[2021-03-13] MEDS: Enoxaparin 120 MG/0.8 ML Syringe SUBCUT SCH (08:31)
[2021-03-13] MEDS: PHENYTOIN 50 MG PO SCH (08:31)
[2021-03-13] MEDS: Phenytoin 100 MG Cap.ER PO SCH (08:32)
--- NOTE | 2021-03-13 10:24 | PCM.DCSUM1 ---
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 Had chronic left hip and low back pain following surgery. Did have an IT band resection and adhesions released from left hip in November 2020 and had some temporary relief with this procedure, but limb length discrepancy continued to contribute to ongoing back and hip pain. Patient elected for more definitive management with a hip revision to correct limb lengths. Underwent left hip revision surgery on 03/09/21. Tolerated surgery well with no major complications. Diagnosis: Stroke: No Modified Melvin Scale: No Symptoms at All Modified Melvin Scale Score: 0 - Discharge Data Discharge Date: 03/13/21 Discharge Disposition: Home, Self-Care 01 Condition: Good - Referral to Home Health Date of Face to Face Encounter: 03/13/21 Primary Care Physician: Jorge Hanley MD - Discharge Diagnosis/Problem(s) (1) Status post hip surgery SNOMED Code(s): 363305675, [id number] ICD Code: Z98.890 - OTHER SPECIFIED POSTPROCEDURAL STATES Status: Acute Current Visit: No Problem Details: left hip revision, replacement of femoral prosthetic. DOS: 03/09/21 (2) Postoperative anemia SNOMED Code(s): 933920139, [id number] ICD Code: D64.9 - ANEMIA, UNSPECIFIED Status: Acute Current Visit: Yes - Patient Summary/Data Operative Procedure(s) Performed: left hip revision Consults: Consultations 03/09/21 13:42 Consult to Case Management/Shore Working Supervisor [CONS] Routine Comment: Physician Instructions: Discharge placement post hip surgery Service(s) to be Consulted: Case Management Special Instructions: ANTICIPATE DISCHARGE TO HOME, OUTPATIENT PT PT Evaluation and Treatment [CONS] Routine Please Evaluate and Treat. PT Reason for Consult: Ambulation Discharge Disposition: Home w Home Health Special Instructions: s/p L MAGY revision. WBAT. This query below is only for informational purposes and is not editable. PT Evaluation and Treatment [CONS] Routine Please Evaluate and Treat. PT Reason for Consult: Post op Ortho Surgery Hip Pending Discharge: Yes, 2- -3 days Special Instructions: Schedule first outpatient P.T. appointment 3 - 5 days post discharge This query below is only for informational purposes and is not editable. 03/09/21 13:46 OT Evaluation and Treatment [CONS] Routine Please Evaluate and Treat. OT Reason for Consult: ADL's Special Instructions: Status post Hip Surgery, L MAGY revision, WBAT This query below is only for informational purposes and is not editable. Hospital Course: Patient is a pleasant 65 y/o female, s/p left hip revision, DOS: 03/09/21. Patient tolerated surgery well with no complications. Patient remained hemodynamically stable following surgery, vitals within normal limits. Did have POD#1 HgB decline to 7.9 but was fairly asymptomatic with this, no lighthea dedness, dizziness, vision changes, nor dyspnea during post operative hospitalization period. POC glucoses were slightly elevated, but within an acceptable range. Patient had a difficult time obtaining adequate pain control without side effects. Initially Percocet and Kim were used on POD#1 and #2, but patient reported increased tremors in her hands and feeling "loopy." Tramadol was used and patient had less tremors and felt more oriented. Denied nausea or emesis with pain medications. Tolerated consistent carbohydrate diet well. Did have constipation following surgery; was on scheduled stool softener BID and a suppository was utilized on POD#4. Patient did have bowel movement following suppository on POD#4. Patient participated in PT and OT daily. Was slow to progress with functional mobility of left leg, but made small improvements every day. By POD#4, ambulating 145 ft with FWW and SBA. Does require assistance with either leg collision estimator or person for transfer of left leg into and out of bed. Able to complete ADLs with moderate assistance. Patient maintenance fluids were discontinued on POD#1. Wright catheter was discontinued on POD#1. Initially had difficulty with urination, but able to void independently the evening of POD#1. Denied dysuria, urgency, nor incontinence. Left hip dressing change performed on POD#2 and #4. On the evening of POD#3, patient did have symptoms consistent with a simple partial seizure. 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 Patient had a roughly 10 minute window of blank stares and muscle jerking, followed by a mild headache. Patient did not lose complete consciousness with this episode. Patient and reported she has these "episodes" about 1-3 times per month. Has been taking home regimen of phenytoin as prescribed by her neurologist at the [facility]. reports unless patient has 2 consecutive episodes, they usually do not change treatment plan or talk to neurologist. If repeat episode occurs within the week, will call neurologist and have blood work to check for therapeutic level of phenytoin. Patient's warfarin and lovenox is managed through [facility] in [place]. Their recommended dosing for warfarin and lovenox was initiated in the post-operative period. PT/INR recheck on 03/13/21. PT: 37.4. INR: 3.8. [facility] and [facility] these [facility] who recommended discontinuing Lovenox and taking 5 mg Warfarin daily through the weekend, and rechecking a PT/INR on Tuesday03/16/21. Patient demonstrated improvements in functional mobility of LLE throughout stay. Was medically stable at time of discharge. Pain was controlled with PO medications. Will have support from spouse at home available to assist with ADLs and leg transfers. - Patient Instructions Diet: Diabetic Diet Activity: Apply Ice, Full Weight Bearing, Rest and Relax Today Driving: Do Not Drive Showering/Bathing: May Shower Wound/Incision Care: Keep Operative Site/Wound Site Clean and Dry Notify Provider of: Fever, Increased Pain, Swelling and Redness, Drainage - Discharge Plan *PRESCRIPTION DRUG MONITORING PROGRAM REVIEWED*: Yes *COPY OF PRESCRIPTION DRUG MONITORING REPORT IN PATIENT HAMIDA: Not Applicable Prescriptions/Med Rec: polyethylene glycoL 3350 [MiraLAX] 17 gm PO ONETIME PRN #1 packet PRN Reason: Constipation traMADol [Ultram] 50 mg PO Q4H PRN #40 tab PRN Reason: Pain (Severe 7-10) Home Medications: Home Meds Aspirin [Low Dose Aspirin EC] 81 mg PO BEDTIME 11/10/20 [History] Gabapentin [Neurontin] 300 mg PO BID 11/10/20 [History] Insulin Aspart [NovoLOG] 24 units SQ TID 11/10/20 [History] Insulin Detemir [Levemir Flextouch] 90 units SQ BEDTIME 11/10/20 [History] Losartan/Hydrochlorothiazide [Losartan-HCTZ 100-25 MG] 1 tab PO DAILY 11/10/20 [History] Omeprazole 20 mg PO PCBREAKFAST 11/10/20 [History] Omeprazole 40 mg PO BEDTIME 11/10/20 [History] Phenytoin 250 mg PO QAM 11/10/20 [History] Phytonadione [Vitamin K] 100 mcg PO QPM 11/10/20 [History] Potassium Chloride 10 meq PO QPM 11/10/20 [History] Topiramate 100 mg PO QAM 11/10/20 [History] Warfarin [Coumadin] 5 - 7.5 mg PO DAILY 11/10/20 [History] atorvaSTATin [Lipitor] 80 mg PO DAILY 11/10/20 [History] Multivitamin with Minerals [Multiple Vitamin] 1 tab PO DAILY 12/22/20 [History] Lactobacillus Acidophilus [Probiotic] 1 each PO DAILY 01/29/21 [History] Phenytoin Sodium Extended [Dilantin] 200 mg PO BEDTIME 01/29/21 [History] Ferrous Sulfate [Iron] 325 mg PO BID 03/09/21 [History] Topiramate 200 mg PO QPM 03/09/21 [History] oxyCODONE HCl/Acetaminophen [Oxycodone-Acetaminophen 5-325] 1 each PO BEDTIME 03/09/21 [History] polyethylene glycoL 3350 [MiraLAX] 17 gm PO ONETIME PRN #1 packet 03/12/21 [Rx] traMADol [Ultram] 50 mg PO Q4H PRN #40 tab 03/13/21 [Rx] Oxygen Therapy Mode: Room Air Patient Handouts: Anemia, Incision Care, Adult, [id number], Preventing Problems After Surgery, How to Prevent Constipation After Surgery Referrals: Salo Herrmann MD [Physician] - 03/24/21 10:30 am (Please arrive 15 minutes early to register for your appointment. Please register at the ER desk.) - Discharge Summary/Plan Comment DC Time >30 min.: No Total # of Minutes for Discharge Time: 20 Discharge Summary/Plan Comment: -Discharge to home today with outpatient physical therapy. -Prescription sent for pain control: 50 mg Tramadol q4 hrs prn for pain. -Encouraged continuation of stool softener while on opioid pain medication. -Called and discussed PT/INR results with [facility], who manages your warfarin/lovenox order. Based on lab results this morning, it is recomended to take 5 mg Warfarin PO daily on Tuesday03/14/21, Tuesday03/14/21, and Tuesday03/15/21. Hold on Enoxaparin. Recheck PT/INR at your local lab on Tuesday. -Continue with Nozin spray BID. -Educated patient on warning signs of DVT/VTE and SSI; any concerns, should contact the clinic or visit local ER. -Educated to take 5 mg Warfarin daily over the weekend and complete a PT/INR recheck on Tuesday at her local lab. -May shower; leave Steristrips on and let water run over the top. They will fall off in 5-7 days. Do not vigorously scrub incision, no submerging incision in bath water. Do not need to place dressing over incision, but may choose to do so if Steristrips are catching on clothing. -Encouraged to touch base with her neurologist at [facility] if recurrent partial seizure episode occurs to check therapeutic levels of phenytoin. -Follow up with orthopedics in 2 weeks; contact clinic with any concerns or questions that arise prior to scheduled apt. - General Info Date of Service: 03/13/21 Admission Dx/Problem (Free Text: limb length discrepancy Functional Status: Reports: Pain Controlled, Tolerating Diet, Ambulating (with FWW ), Urinating - Review of Systems General: Denies: Fever, Chills HEENT: Denies: Visual Changes Pulmonary: Denies: Shortness of Breath Cardiovascular: Denies: Chest Pain, Palpitations, Lightheadedness Gastrointestinal: Denies: Nausea, Vomiting Genitourinary: Denies: Dysuria, Urgency Musculoskeletal: Reports: Leg Pain (left ), Joint Pain (left hip ) Skin: Reports: Bruising Neurological: Reports: No Symptoms. Denies: Headache, Tremors, Change in Speech Psychiatric: Reports: No Symptoms - Patient Data Vitals - Most Recent: Last Vital Signs Temp 98.4 F 03/13/21 07:30 Pulse 84 03/13/21 07:30 Resp 16 03/13/21 07:30 BP 125/55 L 03/13/21 08:30 Pulse Ox 98 03/13/21 07:30 Weight - Most Recent: 162 lb 3.105 oz I&O - Last 24 hours: Intake & Output 03/12/21 03/13/21 03/13/21 22:59 06:59 14:59 Intake Total 300 400 Balance 300 400 Lab Results - Last 24 hrs: Laboratory Results - last 24 hr 03/13/21 Range/Units 05:48 PT 37.4 H (9.2-10.6) sec INR 3.8 Med Orders - Current: Current Medications Acetaminophen (Acetaminophen 325 Mg Tab) 650 mg PO Q4H PRN PRN Reason: Pain/Fever Atorvastatin Calcium (Atorvastatin 20 Mg Tab) 80 mg PO DAILY [facility] Last Admin: 03/13/21 08:30 Dose: 80 mg Documented by: Bandage/Support Products (Nozin Nasal Stripper Cutter Machine) 1 applic NASBOTH BID [facility] Stop: 03/16/21 21:01 Last Admin: 03/13/21 08:31 Dose: 1 applic Documented by: Bisacodyl (Bisacodyl 10 Mg Supp) 10 mg RECTAL DAILY PRN PRN Reason: Constipation Last Admin: 03/13/21 09:31 Dose: 10 mg Documented by: Calcium Carbonate/Glycine (Calcium Carbonate 500 Mg Tab.Chew) 1,000 mg PO Q2H PRN PRN Reason: Indigestion Diazepam (Diazepam 2 Mg Tab) 2 mg PO ONETIME PRN PRN Reason: Spasms Last Admin: 03/09/21 17:32 Dose: 2 mg Documented by: Docusate Sodium (Docusate Sodium 100 Mg Cap) 100 mg PO DAILY [facility] Last Admin: 03/13/21 08:30 Dose: 100 mg Documented by: Ferrous Sulfate (Ferrous Sulfate 325 Mg Tab) 325 mg PO BID [facility] Last Admin: 03/13/21 08:30 Dose: 325 mg Documented by: Gabapentin (Gabapentin 300 Mg Cap) 300 mg PO BID [facility] Last Admin: 03/13/21 08:30 Dose: 300 mg Documented by: Hydrochlorothiazide (Hydrochlorothiazide 25 Mg Tab) 25 mg PO DAILY [facility] Last Admin: 03/13/21 08:30 Dose: 25 mg Documented by: Sodium Chloride (Normal Saline) 1,000 mls @ 125 mls/hr IV ASDIRECTED [facility] Last Admin: 03/09/21 20:23 Dose: 125 mls/hr Documented by: Insulin Glargine (Insulin Glargine,Human Rec. Analog 100 Units/Ml 3 Ml Pen) 90 units SUBCUT BEDTIME [facility] Last Admin: 03/12/21 21:01 Dose: 90 units Documented by: Insulin Human Lispro (Insulin Lispro 100 Unit/Ml 3 Ml Kwikpen) 24 unit SUBCUT TIDMEALS [facility] Last Admin: 03/13/21 07:28 Dose: Not Given Documented by: Ketorolac Tromethamine (Ketorolac 30 Mg/Ml Sdv) 15 mg IVPUSH Q8H PRN PRN Reason: Breakthrough Pain Stop: 03/14/21 13:55 Last Admin: 03/09/21 22:31 Dose: 15 mg Documented by: Losartan Potassium (Losartan 50 Mg Tab) 100 mg PO DAILY [facility] Last Admin: 03/13/21 08:30 Dose: 100 mg Documented by: Phytonadione [ Vitamin K] 100 Mcg Tab (Ptom) 0 mcg PO QPM [facility] Last Admin: 03/12/21 16:26 Dose: 100 mcg Documented by: Ondansetron HCl (Ondansetron 4 Mg/2 Ml Sdv) 4 mg IVPUSH Q6H PRN PRN Reason: Nausea/Vomiting Last Admin: 03/09/21 16:15 Dose: 4 mg Documented by: Phenytoin 50mg Chew (Tab (Ptom)) 1 each PO QAM [facility] Last Admin: 03/13/21 08:31 Dose: 1 each Documented by: Omeprazole 20mg Cap ((Ptom)) 0 each PO BEDTIME [facility] Last Admin: 03/12/21 21:05 Dose: 2 each Documented by: Omeprazole 20mg Cap ((Ptom)) 0 each PO ACBREAKFAST [facility] Last Admin: 03/13/21 07:29 Dose: 1 each Documented by: Phenytoin Sodium (Phenytoin 100 Mg Cap.Er) 200 mg PO BEDTIME [facility] Last Admin: 03/12/21 21:05 Dose: 200 mg Documented by: Phenytoin Sodium (Phenytoin 100 Mg Cap.Er) 200 mg PO QAM [facility] Last Admin: 03/13/21 08:32 Dose: 200 mg Documented by: Polyethylene Glycol (Polyethylene Glycol 3350 Powder 17 Gm Packet) 17 gm PO ONETIME PRN PRN Reason: Constipation Last Admin: 03/12/21 15:05 Dose: 17 gm Documented by: Potassium Chloride (Potassium Chloride 10 Meq Cap.Er) 10 meq PO QPM [facility] Last Admin: 03/12/21 16:29 Dose: 10 meq Documented by: Topiramate (Topiramate 100 Mg Tab) 100 mg PO QAM [facility] Last Admin: 03/13/21 08:30 Dose: 100 mg Documented by: Topiramate (Topiramate 100 Mg Tab) 200 mg PO QPM [facility] Last Admin: 03/12/21 16:30 Dose: 200 mg Documented by: Tramadol HCl (Tramadol 50 Mg Tab) 50 mg PO Q4H PRN PRN Reason: Pain Last Admin: 03/13/21 08:30 Dose: 50 mg Documented by: Discontinued Medications Hydrocodone Bitart/Acetaminophen (Acetaminophen/Hydrocodone 325-5 Mg Tab) 1 tab PO Q4H PRN PRN Reason: Pain (mild 1-3) Last Admin: 03/11/21 14:40 Dose: 1 tab Documented by: Hydrocodone Bitart/Acetaminophen (Acetaminophen/Hydrocodone 325-5 Mg Tab) 1 - 2 tab PO Q4H PRN PRN Reason: Pain Last Admin: 03/12/21 07:35 Dose: 1 tab Documented by: Bandage/Support Products (Nozin Nasal Stripper Cutter Machine) 1 applic NASBOTH ONETIME ONE Stop: 03/09/21 08:01 Last Admin: 03/09/21 08:33 Dose: 3 swab Documented by: Enoxaparin Sodium (Enoxaparin 120 Mg/0.8 Ml Syringe) 120 mg SUBCUT DAILY [facility] Last Admin: 03/13/21 08:31 Dose: 120 mg Documented by: Ephedrine Sulfate (Ephedrine 50 Mg/Ml Sdv) Confirm Administered Dose 50 mg .ROUTE .STK-MED ONE Stop: 03/09/21 11:57 Fentanyl (Fentanyl 100 Mcg/2 Ml Sdv) Confirm Administered Dose 100 mcg .ROUTE .STK-MED ONE Stop: 03/09/21 08:32 Fentanyl (Fentanyl 100 Mcg/2 Ml Sdv) Confirm Administered Dose 100 mcg .ROUTE .STK-MED ONE Stop: 03/09/21 12:56 Hydroxyzine HCl (Hydroxyzine Hcl 25 Mg Tab) 50 mg PO Q8H PRN PRN Reason: Breakthrough Pain Last Admin: 03/12/21 03:56 Dose: 50 mg Documented by: Lactated Ringer's (Ringers, Lactated) 1,000 mls @ 75 mls/hr IV ASDIRECTED [facility] Last Admin: 03/09/21 08:32 Dose: 75 mls/hr Documented by: Cefazolin Sodium/Dextrose 2 gm (/ Premix) 50 mls @ 100 mls/hr IV ONETIME ONE Stop: 03/09/21 08:59 Last Admin: 03/09/21 10:30 Dose: 100 mls/hr Documented by: Lactated Ringer's (Ringers, Lactated) Confirm Administered Dose 1,000 mls @ as directed .ROUTE .STK-MED ONE Stop: 03/09/21 11:08 Lactated Ringer's (Ringers, Lactated) Confirm Administered Dose 1,000 mls @ as directed .ROUTE .STK-MED ONE Stop: 03/09/21 13:08 Cefazolin Sodium/Dextrose 1 gm (/ Premix) 50 mls @ 100 mls/hr IV Q8H [facility] Stop: 03/10/21 10:59 Last Infusion: 03/10/21 11:33 Dose: 100 mls/hr Documented by: Midazolam HCl (Midazolam 1 Mg/Ml 2 Ml Sdv) Confirm Administered Dose 2 mg .ROUTE .STK-MED ONE Stop: 03/09/21 08:32 Midazolam HCl (Midazolam 1 Mg/Ml 2 Ml Sdv) Confirm Administered Dose 2 mg .ROUTE .STK-MED ONE Stop: 03/09/21 11:45 Midazolam HCl (Midazolam 1 Mg/Ml 2 Ml Sdv) Confirm Administered Dose 2 mg .ROUTE .STK-MED ONE Stop: 03/09/21 12:41 Morphine Sulfate (Morphine 2 Mg/Ml Syringe) 1 mg SUBCUT Q1H PRN PRN Reason: Breakthrough Pain Morphine Sulfate (Morphine 2 Mg/Ml Syringe) 1 mg IV Q1H PRN PRN Reason: Breakthrough Pain Last Admin: 03/09/21 18:21 Dose: 1 mg Documented by: Morphine Sulfate (Morphine 2 Mg/Ml Syringe) 2 mg IVPUSH ONETIME ONE Stop: 03/09/21 13:59 Last Admin: 03/09/21 14:03 Dose: 2 mg Documented by: Morphine Sulfate (Morphine 2 Mg/Ml Syringe) 2 mg IV Q1H PRN PRN Reason: Breakthrough Pain Oxycodone/Acetaminophen (Acetaminophen/Oxycodone 325-5 Mg Tab) 1 - 2 tab PO Q4H PRN PRN Reason: Pain Last Admin: 03/11/21 10:02 Dose: 2 tab Documented by: Pantoprazole Sodium (Pantoprazole 40 Mg Tab.Cr) 40 mg PO BIDAC [facility] Last Admin: 03/10/21 07:42 Dose: 40 mg Documented by: Polyethylene Glycol (Polyethylene Glycol 3350 Powder 17 Gm Packet) 17 gm PO ONETIME PRN PRN Reason: Constipation Last Admin: 03/11/21 14:40 Dose: 17 gm Documented by: Povidone Iodine (Povidone-Iodine 10% Soln 118.25 Ml Bottle) Confirm Administered Dose 1 ml .ROUTE .STK-MED ONE Stop: 03/09/21 06:32 Propofol (Propofol 200 Mg/20 Ml Sdv) Confirm Administered Dose 200 mg .ROUTE .STK-MED ONE Stop: 03/09/21 08:32 Propofol (Propofol 200 Mg/20 Ml Sdv) Confirm Administered Dose 200 mg .ROUTE .STK-MED ONE Stop: 03/09/21 12:10 Tramadol HCl (Tramadol 50 Mg Tab) 50 mg PO Q6H PRN PRN Reason: Pain (mild 1-3) Last Admin: 03/13/21 02:28 Dose: 50 mg Documented by: Warfarin Sodium (Warfarin 5 Mg Tab) 10 mg PO ONETIME ONE Stop: 03/10/21 13:01 Last Admin: 03/10/21 12:18 Dose: 10 mg Documented by: Warfarin Sodium (Warfarin 5 Mg Tab) 10 mg PO ONETIME ONE Stop: 03/11/21 13:01 Last Admin: 03/11/21 12:56 Dose: 10 mg Documented by: Warfarin Sodium (Warfarin 2.5 Mg Tab) 7.5 mg PO ONETIME ONE Stop: 03/12/21 13:01 Last Admin: 03/12/21 14:23 Dose: 7.5 mg Documented by: Warfarin Sodium (Warfarin 2.5 Mg Tab) 7.5 mg PO ONETIME ONE Stop: 03/09/21 17:01 Last Admin: 03/09/21 17:57 Dose: 7.5 mg Documented by: - Exam General: Reports: Alert, Oriented, Cooperative, No Acute Distress HEENT: Reports: Pupils Equal, Pupils Reactive Extremities: Normal Capillary Refill, Pedal Edema, Joint Swelling (diffuse, left thigh, knee, and calf ), Leg Pain (left ). No: Freddy's Sign Skin: Reports: Dry, Intact, Ecchymosis Wound/Incisions: Reports: Healing Well, Dressing Dry and Intact, No Drainage Neurological: Reports: No New Focal Deficit Psy/Mental Status: Reports: Alert, Normal Affect, Normal Mood
== END 2021-03-13 13:48 | disposition home or self-care (01) | DRG 467 ==
LOC: JP.SDS 07:06 → JP.MS 14:45 → JP.SDS 03-10 08:46
PROVIDERS: ADMIT Specialist; ATTEND Specialist
PROC: 0SRB0JZ Replacement of Left Hip Joint with Synthetic Substitute, Open Approach (ICD-10-PCS; principal; 2021-03-09)
PROC: 0SPB0JZ Removal of Synthetic Substitute from Left Hip Joint, Open Approach (ICD-10-PCS; 2021-03-09)
DX: M21.752 Unequal limb length (acquired), left femur (principal); T84.84XA Pain due to internal orthopedic prosthetic devices, implants and grafts, initial encounter; D64.9 Anemia, unspecified; Z96.642 Presence of left artificial hip joint; G89.29 Other chronic pain; M54.50 Low back pain, unspecified; R56.9 Unspecified convulsions; R51.9 Headache, unspecified; Z79.82 Long term (current) use of aspirin; Z79.4 Long term (current) use of insulin; Z79.01 Long term (current) use of anticoagulants; Z79.899 Other long term (current) drug therapy; R25.1 Tremor, unspecified; K59.00 Constipation, unspecified
CPT/HCPCS: 36415; 72170; 72170-26; 80053; 82947; 85025; 85027; 85610; 86850; 86900; 86901; 97110-GP; 97162-GP; 97165-GO; 97530-GP; 97535-GO; 97535-GP; A9270-GY; C1776; J0690; J1650; J1815; J1815-GY; J1885; J2250; J2270; J2405; J2704; J3010; J7030; J7120

== ENCOUNTER 2021-10-05 07:11 | Day surgery (SDC) | payer MEDICARE, BC ==
[~2021-10-05 07:11] MED LIST changes: +Bupivacaine 0.5% 50 ML MDV ONE; -Povidone-Iodine 10% Soln 118.25 ML Bottle ONE; -ceFAZolin 2 GM in Premix Bag 1 BAG IV ONE
[2021-10-05] MEDS ORDERED: Nozin Nasal Sanitizer NASBOTH ONE (07:15)
[2021-10-05] MEDS ORDERED: Midazolam 1 MG/ML 2 ML SDV ONE (07:23)
[2021-10-05] MEDS ORDERED: Propofol 200 MG/20 ML SDV ONE (07:23)
[2021-10-05] MEDS ORDERED: fentaNYL 100 MCG/2 ML SDV ONE (07:23)
[2021-10-05] MEDS ORDERED: Lactated Ringers 1,000 ML IV SCH (08:15)
[2021-10-05] MEDS ORDERED: ceFAZolin 2 GM in Premix Bag 1 BAG IV ONE (08:30)
[2021-10-05] MEDS ORDERED: Lactated Ringers 1,000 ML ONE (10:49)
[2021-10-05] MEDS ORDERED: Ondansetron 4 MG/2 ML SDV IVPUSH PRN (10:58)
[2021-10-05] MEDS ORDERED: traMADol 50 MG Tab PO PRN (10:58)
[2021-10-05] MEDS ORDERED: ceFAZolin 1 GM in Sodium Chloride 0.9% 50 ML IV SCH (11:00)
[2021-10-05] MEDS ORDERED: HYDROmorphone 0.5 MG/0.5 ML Syringe IVPUSH PRN (11:06)
[2021-10-05] MEDS ORDERED: Non-Formulary Medication 1 Each (Insulin Aspart [Novolog] 100 UNIT/ML Pen) SQ SCH (14:00)
[2021-10-05] MEDS: Acetaminophen 325 MG Tab PO SCH ×2 (15:02→21:05)
[2021-10-05] MEDS: oxyCODONE 5 MG Tab PO PRN ×2 (15:46→21:02)
[2021-10-05] MEDS: ceFAZolin 1 GM in Premix Bag 1 BAG IV SCH (16:03)
[2021-10-05] MEDS ORDERED: Potassium Chloride 10 MEQ Cap.ER (PTOM) PO SCH (17:00)
[2021-10-05] MEDS ORDERED: Insulin Lispro 100 Unit/ML 3 ML KwikPen SUBCUT SCH (17:00)
[2021-10-05] MEDS ORDERED: ATORVASTATIN 80MG TAB (PTOM) PO SCH (17:00)
[2021-10-05] MEDS ORDERED: TOPIRAMATE 100 MG PO SCH (17:00)
[2021-10-05] MEDS: Ferrous Sulfate 325 MG Tab PO SCH (17:10)
[2021-10-05] MEDS: NOVOLOG 100 UNIT/ML SUBCUT SCH (18:10)
[2021-10-05] MEDS: Sodium Chloride 0.9% 1,000 ML IV SCH (18:32)
[2021-10-05] MEDS ORDERED: OMEPRAZOLE 20MG CAP (PTOM) PO SCH (21:00)
[2021-10-05] MEDS ORDERED: [UNRECOGNIZED DRUG - OTHER] PO SCH (21:00)
[2021-10-05] MEDS ORDERED: Pantoprazole 40 MG Tab.CR PO SCH (21:00)
[2021-10-05] MEDS ORDERED: Non-Formulary Medication 1 Each (Omeprazole [Omeprazole] 40 MG Cap.Cr) PO SCH (21:00)
[2021-10-05] MEDS ORDERED: Insulin Glargine,Human Rec. Analog 100 Units/ML 3 ML Pen SUBCUT SCH (21:00)
[2021-10-05] MEDS ORDERED: Non-Formulary Medication 1 Each (Insulin Detemir [Levemir Flextouch] 100 UNIT/ML Insuln.Pe SQ SCH (21:00)
[2021-10-05] MEDS ORDERED: INSULIN DETEMIR SUBCUT SCH (21:00)
[2021-10-05] MEDS: Nozin Nasal Sanitizer NASBOTH SCH (21:04)
[2021-10-05] MEDS: Docusate Sodium 100 MG Cap PO SCH (21:07)
[2021-10-05] MEDS: Gabapentin 300 MG Cap (PTOM) PO SCH (21:07)
[2021-10-05] MEDS: PHENYTOIN 100 MG PO SCH (21:08)
[2021-10-06] MEDS: Sodium Chloride 0.9% 1,000 ML IV SCH (01:01)
[2021-10-06] MEDS: ceFAZolin 1 GM in Premix Bag 1 BAG IV SCH ×2 (01:01→08:28)
[2021-10-06] MEDS: Acetaminophen 325 MG Tab PO SCH ×2 (01:06→07:18)
[2021-10-06] MEDS: oxyCODONE 5 MG Tab PO PRN (04:39)
[2021-10-06] MEDS: Ferrous Sulfate 325 MG Tab PO SCH (07:18)
[2021-10-06] MEDS: NOVOLOG 100 UNIT/ML SUBCUT SCH (07:20)
[2021-10-06] MEDS ORDERED: OMEPRAZOLE 20MG CAP (PTOM) PO SCH (07:30)
[2021-10-06] MEDS: Nozin Nasal Sanitizer NASBOTH SCH (08:29)
[2021-10-06] MEDS: Docusate Sodium 100 MG Cap PO SCH (08:29)
[2021-10-06] MEDS: Gabapentin 300 MG Cap (PTOM) PO SCH (08:30)
[2021-10-06] MEDS: PHENYTOIN 100 MG PO SCH (08:31)
[2021-10-06] MEDS ORDERED: ATORVASTATIN 80MG TAB (PTOM) PO SCH (09:00)
[2021-10-06] MEDS ORDERED: Non-Formulary Medication 1 Each (Omeprazole [Omeprazole] 20 MG Cap.Cr) PO SCH (09:00)
[2021-10-06] MEDS ORDERED: [UNRECOGNIZED DRUG - OTHER] PO SCH (09:00)
[2021-10-06] MEDS ORDERED: Non-Formulary Medication 1 Each (Lactobacillus Acidophilus [Probiotic] 1 EACH Capsule) PO SCH (09:00)
[2021-10-06] MEDS ORDERED: Non-Formulary Medication 1 Each (Atorvastatin [Lipitor] 80 MG Tablet) PO SCH (09:00)
[2021-10-06] MEDS ORDERED: LOSARTAN PO SCH (09:00)
[2021-10-06] MEDS ORDERED: Warfarin 5 MG Tab PO SCH (09:00)
[2021-10-06] MEDS ORDERED: ENOXAPARIN 80 MG/0.8 ML SUBCUT ONE (09:00)
[2021-10-06] MEDS ORDERED: atorvaSTATin 20 MG Tab PO SCH (09:00)
[2021-10-06] MEDS ORDERED: HCTZ PO SCH (09:00)
[2021-10-06] MEDS ORDERED: TOPIRAMATE 100 MG PO SCH (09:00)
[2021-10-06] MEDS ORDERED: Losartan 50 MG Tab PO SCH (09:00)
[2021-10-06] MEDS ORDERED: Hydrochlorothiazide 25 MG Tab PO SCH (09:00)
[2021-10-06] MEDS ORDERED: Warfarin 5 MG, Warfarin 2.5 MG PO ONE ×2 (11:00)
[2021-10-06] MEDS ORDERED: Warfarin 5 MG Tab (PTOM) PO SCH (13:00)
[2021-10-09] MEDS ORDERED: WARFARIN PO SCH ×2 (13:00)
== END 2021-10-06 11:10 | disposition home or self-care (01) ==
LOC: JP.SDS 07:11 → JP.MS 10:58 → JP.SDS 10-06 11:10
PROVIDERS: ATTEND Specialist
DX: T84.84XA Pain due to internal orthopedic prosthetic devices, implants and grafts, initial encounter (principal); I10 Essential (primary) hypertension; E78.5 Hyperlipidemia, unspecified; K21.9 Gastro-esophageal reflux disease without esophagitis; Z79.82 Long term (current) use of aspirin; Z79.899 Other long term (current) drug therapy
CPT/HCPCS: 20680; 36415; 80053; 82947; 85027; 85610; 97110-GP; 97116-GP; 97161-GP; 97530-GP; A9270-GY; J0690; J1650; J1815; J1815-GY; J2250; J2704; J3010; J3490; J7030; J7120

== ENCOUNTER 2024-09-24 07:34 | Inpatient (IN) | payer MEDICARE, BC ==
[2024-09-24] MEDS ORDERED: fentaNYL 250 MCG/5 ML SDV ONE (07:51)
[2024-09-24] MEDS ORDERED: Rocuronium 50 MG/5 ML Vial ONE (07:52)
[2024-09-24] MEDS ORDERED: Succinylcholine 200 MG/10 ML MDV ONE (07:52)
[2024-09-24] MEDS ORDERED: Neostigmine Methylsulfate 10 MG/10 ML MDV ONE (07:52)
[2024-09-24] MEDS ORDERED: Ondansetron 4 MG/2 ML SDV ONE (07:52)
[2024-09-24] MEDS ORDERED: Propofol 200 MG/20 ML SDV ONE (07:52)
[2024-09-24] MEDS ORDERED: Glycopyrrolate 0.2 MG/ML 5 ML MDV ONE (07:52)
[2024-09-24 08:01] LABS: HEMATOCRIT 27.6 % (34.3-46.0); HEMOGLOBIN 7.4 g/dL (11.2-15.5); MEAN CORPUSCULAR HGB CONC 26.8 g/dL (31.6-35.5); MEAN CORPUSCULAR VOLUME 82.4 fL (81.4-99.0); RED BLOOD CELL COUNT 3.35 M/uL (3.77-5.24); WHITE BLOOD CELL COUNT,WBC 6.9 K/uL (3.2-11.0)
[2024-09-24] MEDS: Nozin Nasal Sanitizer NASBOTH ONE (08:12)
[2024-09-24] MEDS: Lactated Ringers 1,000 ML IV SCH (08:13)
[2024-09-24 08:15] LABS: ANION GAP 7.4 mmol/L (5.0-14.0); BLOOD UREA NITROGEN,BUN 13 mg/dL (7-18); CARBON DIOXIDE,CO2 29 mmol/L (21-32); CHLORIDE,CL 105 mmol/L (100-108); CREATININE 0.8 mg/dL (0.6-1.0); ESTIMATED GFR 81 mL/min (>60); GLUCOSE RANDOM 145 mg/dL (74-106); POTASSIUM,K 3.6 mmol/L (3.6-5.2); SODIUM,NA 141 mmol/L (140-148)
[2024-09-24 08:18] LABS: MEAN CORPUSCULAR HEMOGLOBIN 22.1 pg (31.6-35.5)
[2024-09-24 08:25] LABS: PROTHROMBIN TIME 10.1 sec (9.2-10.6); PTT,PARTIAL THROMBOPLSTIN TIME 23.3 sec (21.8-27.3)
[2024-09-24] MEDS: ceFAZolin 2 GM in Premix Bag 1 BAG IV ONE (08:35)
[2024-09-24] MEDS ORDERED: oxyCODONE 5 MG Tab PO PRN (08:39)
[2024-09-24] MEDS ORDERED: Ondansetron 4 MG/2 ML SDV IVPUSH PRN (08:39)
[2024-09-24] MEDS ORDERED: Docusate Sodium 100 MG Cap PO PRN (08:39)
[2024-09-24] MEDS ORDERED: Magnesium Hydroxide 400 MG/5 ML Susp 30 ML Cup PO PRN (08:39)
[2024-09-24] MEDS ORDERED: Morphine 2 MG/ML SYRINGE IVPUSH PRN (08:39)
[2024-09-24] MEDS ORDERED: Warfarin 5 MG Tab PO SCH (09:00)
[2024-09-24] MEDS: Bupivacaine 0.5% 30 ML SDV ONE (09:17)
[2024-09-24] MEDS ORDERED: Sugammadex Sodium 200 MG/2 ML VIAL IV ONE (09:36)
[2024-09-24] MEDS: oxyCODONE 5 MG Tab PO PRN (12:01)
[2024-09-24] MEDS: SPIRONOLACTONE 25 MG PO SCH (12:06)
[2024-09-24] MEDS: Furosemide 40 MG **PTOM PO SCH (12:06)
[2024-09-24] MEDS: MACROCRYSTALLINE PO SCH (12:07)
[2024-09-24] MEDS: NITROFURANTOIN MONOHYDRATE PO SCH (12:07)
[2024-09-24] MEDS: Gabapentin 300 MG **PTOM PO SCH (12:07)
[2024-09-24] MEDS: OMEPRAZOLE 40MG **PTOM PO SCH (12:08)
[2024-09-24] MEDS: PHENYTOIN 100 MG PO SCH (12:08)
[2024-09-24] MEDS: POTASSIUM CHLORIDE 10 MEQ PO SCH (12:09)
[2024-09-24] MEDS: MAGNESIUM CHLORIDE 71.5 MG PO SCH (12:10)
[2024-09-24] MEDS: TOPIRAMATE 100 MG PO SCH ×2 (12:10→17:04)
[2024-09-24] MEDS: IRON PO SCH (12:11)
[2024-09-24] MEDS: FOLIC ACID PO SCH (12:11)
[2024-09-24] MEDS: PRENATAL MULTIVITAMIN WITH CALCIUM PO SCH (12:11)
[2024-09-24] MEDS: Acetaminophen 325 MG Tab PO SCH (12:12)
[2024-09-24] MEDS: Sodium Chloride 0.9% 1,000 ML IV SCH (12:17)
[2024-09-24] MEDS: INSULIN ASPART 100 UNIT/ML SQ SCH (13:30)
[2024-09-24] MEDS: ceFAZolin 2 GM in Premix Bag 1 BAG IV SCH (16:52)
[2024-09-24] MEDS: Warfarin 5 MG Tab PO ONE (16:55)
[2024-09-24] MEDS: Nozin Nasal Sanitizer NASBOTH SCH (22:00)
[2024-09-24] MEDS: TRESIBA 200 UNIT/ML SQ SCH (22:03)
[2024-09-24] MEDS: ENOXAPARIN 60 MG/0.6 ML SUBCUT SCH (22:05)
[2024-09-24] MEDS: ATORVASTATIN 80 MG PO SCH (22:06)
[2024-09-25] MEDS: Aspirin 81 MG Tab.EC **PTOM PO SCH (08:13)
[2024-09-25] MEDS: Metoprolol Succinate 25 MG Tab.ER **PTOM PO SCH (08:14)
[2024-09-25 09:07] LABS: PROTHROMBIN TIME 10.6 sec (9.2-10.6)
[2024-09-25] MEDS ORDERED: Warfarin 5 MG **PTOM PO SCH (13:00)
[2024-09-25] MEDS: Warfarin 5 MG Tab PO ONE (16:59)
[2024-09-26 06:15] LABS: INR 1.1; PROTHROMBIN TIME 11.6 sec (9.2-10.6)
[2024-09-26] MEDS: Potassium Chloride 10 MEQ Cap.ER PO SCH (08:45)
[2024-09-26] MEDS: Spironolactone 25 MG Tab PO SCH (08:46)
[2024-09-26] MEDS: Aspirin 81 MG Tab.EC PO SCH (08:47)
[2024-09-26] MEDS: Enoxaparin 60 MG/0.6 ML Syringe SUBCUT SCH (08:48)
[2024-09-26] MEDS: Furosemide 40 MG Tab PO SCH (08:48)
[2024-09-26] MEDS: Gabapentin 300 MG Cap PO SCH (08:58)
[2024-09-26] MEDS: Nitrofurantoin Monohydrate/Macrocrystalline 100 MG Cap PO SCH (08:58)
[2024-09-26] MEDS: Topiramate 100 MG Tab PO SCH (09:00)
[2024-09-26] MEDS: Phenytoin 100 MG Cap.ER PO SCH (09:01)
[2024-09-26] MEDS: Metoprolol Succinate 25 MG Tab.ER PO SCH (09:01)
[2024-09-26] MEDS: Warfarin 5 MG Tab PO ONE (09:02)
[2024-09-26] MEDS ORDERED: Warfarin 5 MG Tab PO SCH (13:00)
[2024-09-26] MEDS ORDERED: Topiramate 100 MG Tab PO SCH (17:00)
[2024-09-26] MEDS ORDERED: atorvaSTATin 20 MG Tab PO SCH (21:00)
[2024-09-28] MEDS ORDERED: Warfarin 2.5 MG Tab PO SCH (13:00)
[2024-09-28] MEDS ORDERED: Warfarin 5 MG **PTOM PO SCH (13:00)
== END 2024-09-26 10:45 | disposition home or self-care (01) | DRG 489 ==
LOC: JP.SDS 07:34 → JP.2SS 08:31 → JP.SDS 09-25 16:48 → JP.2SS 09-25 16:49
PROVIDERS: ADMIT Specialist; ATTEND Specialist
PROC: 0SNC4ZZ Release Right Knee Joint, Percutaneous Endoscopic Approach (ICD-10-PCS; principal; 2024-09-24 08:45)
DX: M25.561 Pain in right knee (principal); Z79.01 Long term (current) use of anticoagulants; Z79.82 Long term (current) use of aspirin; Z79.899 Other long term (current) drug therapy; Z79.4 Long term (current) use of insulin
CPT/HCPCS: 01400-QZ; 36415; 80048; 85018; 85027; 85610; 85730; 97110-GP; 97116-GP; 97161-GP; 97165-GO; A9270-GY; J0330; J0665; J0690; J1596; J1650; J2405; J2704; J2710; J3010; J3490; J7030; J7120

== ENCOUNTER 2025-01-25 06:34 | Day surgery (SDC) | payer MEDICARE, BC ==
[2025-01-25] MEDS ORDERED: fentaNYL 50 MCG/ML SDV ONE (07:15)
[2025-01-25] MEDS ORDERED: Midazolam 1 MG/ML 2 ML SDV ONE (07:15)
[2025-01-25] MEDS ORDERED: Propofol 200 MG/20 ML SDV ONE ×2 (07:15→07:20)
[2025-01-25] MEDS: Lactated Ringers 1,000 ML IV SCH (07:30)
== END 2025-01-25 11:29 | disposition home or self-care (01) ==
LOC: JP.SDS 06:34
PROVIDERS: ATTEND Family Medicine
DX: K31.7 Polyp of stomach and duodenum (principal); K64.8 Other hemorrhoids; D50.9 Iron deficiency anemia, unspecified; I10 Essential (primary) hypertension; K57.30 Diverticulosis of large intestine without perforation or abscess without bleeding; Z98.0 Intestinal bypass and anastomosis status; Z79.01 Long term (current) use of anticoagulants; Z90.49 Acquired absence of other specified parts of digestive tract
CPT/HCPCS: 00813; 43239; 45378; 88305; J2250; J2704; J3010; J7120